=== PATIENT | female | born 1975 | race Caucasian/White ===

== ENCOUNTER 2016-08-03 09:51 | Emergency (ER) | payer OTHER ==
[2016-08-03 10:02] VITALS: TEMP 98; BMI 28.3
[2016-08-03] MEDS ORDERED: SODIUM CHLORIDE 1,000 ML IV ONE (10:40)
--- NOTE | 2016-08-03 10:40 | PDOC ---
History of Present Illness <Stephani Brown - Last Filed: 08/03/16 11:30> - General History Source: Patient Exam Limitations: No Limitations <Jose Youngblood - Last Filed: 08/03/16 17:00> - General Chief Complaint: Palpitations Stated Complaint: RAPID HEARTBEAT Time Seen by Provider: 08/03/16 10:17 - History of Present Illness Initial Comments: 08/03/16 11:30 The patient is a 41 year old female with a past medical hx of HTN who presents to the ED via EMS complaining of two episodes of palpitations since last night. The patient reports last night before she went to bed she had an episode of chest pressure and palpitations, which lasted for 1-2 minutes prior to resolving. She states this morning when she was driving to work she had a second episode of palpitations and chest pressure. The patient denies any associated chest pain and SOB. She reports last night she had a headache so she took an Excedrin prior to her episode of palpitations. She reports she drank coffee this morning and had breakfast before going to work. She reports daily caffeine intake. She states she has these episodes a few times a month. The patient denies any dizziness or lightheadedness. The patient states she is asymptomatic while in the ED. The patient has not had her thyroid levels checked in the past. LMP July 02, 2016. The patient denies nausea, vomiting, diarrhea, melena, hematochezia The patient denies cough, fever, chills Social: Denies tobacco use, drinks alcohol on occasion Surgical: Abdominal (leilani morgan) PCP: Dr. Harper (Stephani Brown) Past History <Stephani Brown - Last Filed: 08/03/16 11:30> - Past Medical History Anemia: No Asthma: No Cancer: No Cardiac Disorders: No CVA: No COPD: No CHF: No Dementia: No Diabetes: No GI Disorders: No Disorders: No HTN: No Hypercholesterolemia: Yes Liver Disease: No Seizures: No Thyroid Disease: No - Surgical History Abdominal Surgery: Yes (Leilani morgan, lipo) Appendectomy: No Cardiac Surgery: No Cholecystectomy: No Lung Surgery: No Neurologic Surgery: No - Immunization History Immunization Up to Date: Yes - Psycho/Social/Smoking Cessation Hx Anxiety: No Suicidal Ideation: No Smoking History: Never smoked Have you smoked in the past 12 months: No Information on smoking cessation initiated: No Hx Alcohol Use: No Drug/Substance Use Hx: No Substance Use Type: Alcohol Hx Substance Use Treatment: No <Jose Youngblood - Last Filed: 08/03/16 17:00> - Past Medical History Allergies/Adverse Reactions: Allergies Allergy/AdvReac Type Severity Reaction Status Date / Time adhesive AdvReac Verified 08/03/16 09:58 Home Medications: Ambulatory Orders Amlodipine Besylate 5 mg PO DAILY 08/03/16 Cardiac Specific PMH - Complaint Specific PMHX Pacemaker: No <Jose Youngblood - Last Filed: 08/03/16 17:00> Review of Systems - Review of Systems Able to Perform ROS?: Yes <Stephani Brown - Last Filed: 08/03/16 11:30> <Jose Youngblood - Last Filed: 08/03/16 17:00> - Review of Systems Comments:: 08/03/16 11:31 CONSTITUTIONAL: No reported: Fever, Chills, Diaphoresis, Generalized Weakness, Malaise, Loss of Appetite HEENT: No reported: Rhinorrhea, Nasal Congestion, Throat Pain, Throat Swelling, Difficulty Swallowing, Mouth Swelling, Ear Pain, Eye Pain, Visual Changes CARDIOVASCULAR: +Chest pressure, palpitations. No reported: Chest Pain, Syncope, Irregular Heart Rate, Lightheadedness, Peripheral Edema RESPIRATORY: No reported: Cough, Shortness of Breath, SOB with Exertion, Orthopnea, Wheezing , Stridor, Hemoptysis GASTROINTESTINAL: No reported: Abdominal pain, Abdominal Distension, Nausea, Vomiting, Diarrhea, Constipation, Melena, Hematochezia GENITOURINARY: No reported: Dysuria, Frequency, Urgency, Hesitancy, Flank Pain, Genital Pain MUSCULOSKELETAL: No reported: Myalgia, Arthralgia, Joint Swelling, Back pain, Neck Pain SKIN: No reported: Rash, Itching, Pallor HEMATOLOGIC/IMMUNOLOGIC: No reported: Easy Bleeding, Easy Bruising, Lymphadenopathy, Frequent infections ENDOCRINE: No reported: Unexplained Weight Gain, Unexplained Weight Loss, Heat Intolerance , Cold Intolerance NEUROLOGIC: No reported: Headache, Focal Weakness, Paresthesias, Vertigo, Lightheadedness, Unsteady Gait, Seizure, Mental Status Changes, Incontinence PSYCHIATRIC: No reported: Anxiety, Depression (Stephani Brown) *Physical Exam <Stephani Brown - Last Filed: 08/03/16 11:30> <Jose Youngblood - Last Filed: 08/03/16 17:00> - Vital Signs Last Vital Signs Temp Pulse Resp BP Pulse Ox 98.0 F 90 18 143/87 100 08/03/16 09:59 08/03/16 14:05 08/03/16 14:05 08/03/16 14:05 08/03/16 14:05 - Physical Exam Comments: 08/03/16 11:31 GENERAL: The patient is awake, alert, and fully oriented, Nontoxic - in no acute distress. HEAD: Normocephalic, atraumatic. EYES: extraocular movements intact, sclera anicteric, conjunctiva clear. ENT: Normal voice, Moist mucous membranes. NECK: Normal range of motion, No JVD LUNGS: Breath sounds equal, clear to auscultation bilaterally. No wheezes, no rhonchi, no rales. HEART: Regular rate and rhythm, normal S1 and S2 without murmur, rub or gallop. ABDOMEN: Soft, nontender, normoactive bowel sounds. No guarding, no rebound. No masses. No CVA tenderness EXTREMITIES: Normal range of motion, no edema. No clubbing or cyanosis. No cords , erythema, or tenderness. NEUROLOGICAL: No facial asymmetry, Normal speech, normal gait. PSYCH: Normal mood, normal affect. SKIN: Warm, Dry, normal turgor. (Stephani Brown) Heart Score/ECG Review <Stephani Brown - Last Filed: 08/03/16 11:30> - History History: Slightly suspicious - Electrocardiogram EKG: Normal - Age Age: </= 45 - Risk Factors Risk Factors Heart Score: Yes Hx Hypertension Based on the list above the patient has:: 1-2 risk factors - Troponin Troponin: </= normal limit - Score Heart Score - Total: 1 <Jose Youngblood - Last Filed: 08/03/16 17:00> - ECG Impressions Comment:: 08/03/16 10:51 Twelve-lead EKG was performed and reviewed by me. There is normal sinus rhythm with a normal rate. Rate of 90 The axis is normal. The intervals are normal. There is normal R wave progression There are no ST or T wave abnormalities. Impression: Normal twelve-lead EKG (Jose Youngblood) ED Treatment Course - LABORATORY CBC & Chemistry Diagram: 08/03/16 10:40 08/03/16 10:40 <Stephani Brown - Last Filed: 08/03/16 11:30> - LABORATORY CBC & Chemistry Diagram: 08/03/16 10:40 08/03/16 10:40 <Jose Youngblood - Last Filed: 08/03/16 17:00> - ADDITIONAL ORDERS Additional order review: Laboratory Results 08/03/16 08/03/16 08/03/16 15:24 10:40 10:40 Sodium 141 Potassium 3.8 Chloride 108 H Carbon Dioxide 27 Anion Gap 6 L BUN 14 D Creatinine 0.7 Creat Clearance w eGFR > 60 Random Glucose 93 Calcium 8.9 Magnesium 2.2 D Total Bilirubin 0.3 AST 14 L ALT 23 Alkaline Phosphatase 44 L Creatine Kinase 107 116 Troponin I < 0.02 < 0.02 Total Protein 7.1 Albumin 3.9 TSH 1.13 D Serum , Qual Negative Urine Color Colorless Urine Appearance Clear Urine pH 7.0 Ur Specific [place] 1.003 Urine Protein Negative Urine Glucose (UA) Negative Urine Ketones Negative Urine Blood Negative Urine Nitrite Negative Urine Bilirubin Negative Urine Urobilinogen Negative Ur Leukocyte Esterase Negative 08/03/16 10:40 RBC 4.97 MCV 83.5 MCHC 33.8 RDW 13.4 MPV 7.5 Neutrophils % 55.8 Lymphocytes % 33.7 D Monocytes % 6.9 Eosinophils % 3.2 Basophils % 0.4 - RADIOLOGY Radiology Studies Ordered: Category Date Time Status CHEST X-RAY PORTABLE* [RAD] Stat Radiology 08/03/16 10:27 Completed Radiograph Interpretation: 08/03/16 11:25 Chest X-Ray Findings. The trachea is normal in size is not deviated. The cardiomediastinal silhouette, thoracic aorta, and hilar regions are normal. The pulmonary vasculature pattern is normal. The lungs are well aerated, without evidence of active pulmonary disease, pleural effusion or pneumothorax. No bulky hilar adenopathy is noted. No lung mass is seen within the limitation of examination. The visualized osseous structure and soft tissues are normal. Impression: No evidence of active pulmonary disease. Reported By: Teodoro Vu MD 08/03/16 1122 (Stephani Brown) - Medications Given in the ED: ED Medications Discontinued Medications Generic Name Dose Route Start Last Admin Trade Name Tad PRN Reason Stop Dose Admin Al Hydroxide/Mg Hydroxide 30 ml 08/03/16 14:28 08/03/16 15:05 Mylanta Suspension - PO 08/03/16 14:29 30 ml ONCE ONE Administration Sodium Chloride 1,000 mls @ 1,000 mls/hr 08/03/16 10:40 08/03/16 11:00 Normal Saline - IV 08/03/16 11:39 1,000 mls/hr .Q1H ONE Administration Famotidine/Sodium Chloride 20 50 mls @ 100 mls/hr 08/03/16 14:28 08/03/16 15:05 mg/ Miscellaneous IVPB 08/03/16 14:57 100 mls/hr ONCE ONE Administration Medical Decision Making <KevinStephani - Last Filed: 08/03/16 11:30> <Jose Youngblood - Last Filed: 08/03/16 17:00> - Medical Decision Making 08/03/16 10:37 41y F hx of htn, presents with complaints of episodic palpitations, lasting for several minutes associated with mild chest pressure. on exam pt feeling improved currently asypmtmatic. vitals normal differential for the patient's symptoms include but are not limited to thyroid disease, anemia, metabolic derangements, orthostasis, caffeine use, anxiety. will check cbc to r/o anemia cmp to r/o electrolyte imbalance tsh to r./o thyroid disease ekg to r/o arrhythmia cxr to r/o acute pulmonary disease will reassess 08/03/16 16:59 pt feeling improved labs reviewed unremarkble trop neg x 2 will d/c with pmd fu return precautions were discussed I discussed the physical exam findings, ancillary test results and final diagnoses with the patient. I answered all of the patient's questions. The patient was satisfied with the care received and felt comfortable with the discharge plan and treatment plan. The patient will call their primary care physician within 24 hours to arrange follow-up and will return to the Emergency Department with any new, persistent or worsening symptoms. (Jose Youngblood) *DC/Admit/Observation/Transfer <Stephani Brown - Last Filed: 08/03/16 11:30> - Discharge Dispostion Admit: No <Jose Youngblood - Last Filed: 08/03/16 17:00> Diagnosis at time of Disposition: Palpitations - Discharge Dispostion Disposition: HOME Condition at time of disposition: Improved - Referrals Referrals: Leroy Boggs MD [Primary Care Provider] - - Patient Instructions Printed Discharge Instructions: DI for Palpitations Additional Instructions: Return to the emergency department immediately with ANY new, persistent or worsening symptoms. You MUST call and follow up with your doctor tomorrow for further evaluation of your symptoms. Results were discussed with you. Please make sure your doctor reviews the results of your emergency evaluation. If you had any xrays during your visit, it was read preliminarily by myself, a Radiologist will review it and if there are any additional findings we will call you. Print Language: SLOVENIAN - Attestations Scribe Attestion: 08/03/16 11:31 Documentation prepared by Stephani Brown, acting as medical assistant per diem for Jose Youngblood MD. (Stephani Brown)
[2016-08-03 11:10] LABS: BASOPHIL 0.4 % (0-2.0); EOSINOPHIL 3.2 % (0-4.5); MCH 28.2 pg (25.7-33.7); MCHC 33.8 g/dl (32.0-36.0); MEAN CELL VOLUME 83.5 fl (80-96); MEAN PLT VOLUME 7.5 fl (7.5-11.1); NEUTROPHILS 55.8 % (42.8-82.8); PLATELET COUNT 282 K/MM3 (134-434); RDW 13.4 % (11.6-15.6); WHITE BLOOD COUNT 5.8 K/mm3 (4.0-10.0)
[2016-08-03 11:36] LABS: ALBUMIN 3.9 g/dl (3.4-5.0); ANION GAP 6 (8-16); BILIRUBIN,TOTAL 0.3 mg/dL (0.2-1.0); CALCIUM 8.9 mg/dL (8.5-10.1); CO2 27 mmol/L (21-32); CREATININE 0.7 mg/dL (0.55-1.02); GLUCOSE,RANDOM 93 mg/dL (74-106); MAGNESIUM 2.2 mg/dL (1.8-2.4); SGOT/AST 14 U/L (15-37); SGPT/ALT 23 U/L (12-78); TOT PROT 7.1 g/dl (6.4-8.2)
[2016-08-03 11:45] LABS: ALK PHOS 44 U/L (45-117); THYROID STIMULATING HORMONE 1.13 uIU/ml (0.358-3.74); TROPONIN I < 0.02 ng/ml (0.00-0.05)
[2016-08-03] MEDS ORDERED: FAMOTIDINE 20 MG/50 ML IVPB 20 MG in PREMIX 50 IVPB ONE (14:28)
[2016-08-03] MEDS ORDERED: MAG HYDROX/AL HYDROX/SIMETH 355 ML ORAL.SUSP PO ONE (14:28)
[2016-08-03] MEDS ORDERED: MAG HYDROX/AL HYDROX/SIMETH 30 ML UNIT-DOSE CUP ONE (15:00)
[2016-08-03] MEDS ORDERED: FAMOTIDINE 20 MG/50 ML IVPB 50 ML IVPB ONE (15:01)
[2016-08-03 15:15] LABS: URINE APPEARANCE CLEAR; URINE BILIRUBIN NEGATIVE (NEGATIVE); URINE BLOOD NEGATIVE (NEGATIVE); URINE COLOR COLORLESS; URINE GLUCOSE (UA) NEGATIVE (NEGATIVE); URINE KETONE NEGATIVE (NEGATIVE); URINE LEUK ESTERASE NEGATIVE (NEGATIVE); URINE NITRITE NEGATIVE (NEGATIVE); URINE PROTEIN NEGATIVE (NEGATIVE); URINE UROBILINOGEN NEGATIVE E.U./dl (0.2-1.0)
[2016-08-03 16:19] LABS: TROPONIN I < 0.02 ng/ml (0.00-0.05)
[2016-08-03 17:12] VITALS: BP 127/88; PULSE 84
--- NOTE | 2016-08-03 23:16 | EKG ---
Test Reason : Blood Pressure : / mmHG Vent. Rate : 090 BPM Atrial Rate : 090 BPM P-R Int : 134 ms QRS Dur : 084 ms QT Int : 368 ms P-R-T Axes : 038 068 052 degrees QTc Int : 450 ms NORMAL SINUS RHYTHM WHEN COMPARED WITH ECG OF 24-FEB-2016 14:08, NO SIGNIFICANT CHANGE WAS FOUND Confirmed by JOYCE ALVAREZ MD ([id number]) on 08/03/2016 11:15:29 PM Referred By: Confirmed By:JOYCE ALVAREZ MD
== END 2016-08-03 17:12 | disposition home or self-care (01) ==
LOC: JER 09:51
PROC: 3E033GC Introduction of Other Therapeutic Substance into Peripheral Vein, Percutaneous Approach (ICD-10-PCS; principal; 2016-08-03)
PROC: 3E0337Z Introduction of Electrolytic and Water Balance Substance into Peripheral Vein, Percutaneous Approach (ICD-10-PCS; 2016-08-03)
DX: R00.2 Palpitations (principal); I10 Essential (primary) hypertension
CPT/HCPCS: 36415; 71010-TC; 80053; 81003; 82550; 83735; 84443; 84484; 84703; 85025; 93005; 93010; 96361; 96365; 99285-25

== ENCOUNTER 2017-05-04 09:33 | Emergency (ER) | payer OTHER ==
[2017-05-04 09:37] VITALS: BMI 28.3
[2017-05-04] MEDS ORDERED: ASPIRIN 81 MG CHEWABLE TABLETS PO ONE (11:21)
[2017-05-04] MEDS ORDERED: ASPIRIN 81 MG CHEWABLE TABLETS ONE (11:24)
--- NOTE | 2017-05-04 11:30 | PDOC ---
History of Present Illness - General History Source: Patient Exam Limitations: No Limitations - History of Present Illness Initial Comments: 05/04/17 12:16 The patient is a 42 year old female, with a significant past medical history of HTN, HLD who presents to the emergency department with sudden onset chest pressure and epigastric discomfort today. Patient reports chest pressure, nonradiating, burning sensation, 8/10 in severity that lasted for 1 minute. 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 Patient reports associated nausea however denies vomiting, abdominal, diarrhea, constipation. As per patient, last stress test was normal. She also reports taking her BP medication this morning. Patient also reports intermittent leg edema however denies calf pain. She denies chest pain, headache or dizziness. She denies fever, chills, abdominal pain, nausea, vomit, diarrhea or constipation. She denies dysuria, frequency, urgency or hematuria. Patient denies sick contacts or recent travel. <Tori Mansfield - Last Filed: 05/04/17 12:16> <Ingrid Ortiz - Last Filed: 05/04/17 16:03> - General Chief Complaint: Pain Stated Complaint: CHEST DISCOMFORT, ABD PAIN Time Seen by Provider: 05/04/17 10:42 Past History <Tori Mansfield - Last Filed: 05/04/17 12:16> - Past Medical History Anemia: No Asthma: No Cancer: No Cardiac Disorders: No CVA: No COPD: No CHF: No Dementia: No Diabetes: No GI Disorders: No Disorders: No HTN: Yes Hypercholesterolemia: Yes Liver Disease: No Seizures: No Thyroid Disease: No - Surgical History Abdominal Surgery: Yes (Tummy tuck, lipo) Appendectomy: No Cardiac Surgery: No Cholecystectomy: No Lung Surgery: No Neurologic Surgery: No - Immunization History Immunization Up to Date: Yes - Suicide/Smoking/Psychosocial Hx Smoking History: Never smoked Have you smoked in the past 12 months: No Hx Alcohol Use: Yes (SOCIAL) Drug/Substance Use Hx: No Substance Use Type: Alcohol Hx Substance Use Treatment: No <Ingrid Ortiz - Last Filed: 05/04/17 16:03> - Past Medical History Allergies/Adverse Reactions: Allergies Allergy/AdvReac Type Severity Reaction Status Date / Time adhesive AdvReac Verified 05/04/17 09:37 Home Medications: Ambulatory Orders Amlodipine Besylate 5 mg PO DAILY 08/03/16 Review of Systems - Review of Systems Able to Perform ROS?: Yes Comments:: 05/04/17 12:16 GENERAL/CONSTITUTIONAL: No fever or chills. No weakness. HEAD, EYES, EARS, NOSE AND THROAT: No change in vision. No ear pain or discharge. No sore throat. GASTROINTESTINAL: + nausea, vomiting, epigastric pain. No diarrhea or constipation. GENITOURINARY: No dysuria, frequency, or change in urination. CARDIOVASCULAR: No chest pain or shortness of breath. RESPIRATORY: No cough, wheezing, or hemoptysis. MUSCULOSKELETAL: No joint or muscle swelling or pain. No neck or back pain. SKIN: No rash NEUROLOGIC: No headache, vertigo, loss of consciousness, or change in strength/ sensation. ENDOCRINE: No increased thirst. No abnormal weight change. HEMATOLOGIC/LYMPHATIC: No anemia, easy bleeding, or history of blood clots. ALLERGIC/IMMUNOLOGIC: No hives or skin allergy. <Tori Mansfield - Last Filed: 05/04/17 12:16> *Physical Exam - Vital Signs Last Vital Signs Temp Pulse Resp BP Pulse Ox 98.4 F 73 17 123/90 99 05/04/17 11:51 05/04/17 11:51 05/04/17 11:51 05/04/17 11:51 05/04/17 11:51 - Physical Exam Comments: 05/04/17 12:16 GENERAL: Awake, alert, and fully oriented, in no acute distress HEAD: No signs of trauma EYES: PERRLA, EOMI, sclera anicteric, conjunctiva clear ENT: Auricles normal inspection, nares patent, Moist mucosa NECK: Normal ROM, supple, no lymphadenopathy, JVD, or masses LUNGS: Breath sounds equal, clear to auscultation bilaterally. No wheezes, and no crackles HEART: Regular rate and rhythm, normal S1 and S2, no murmurs, rubs or gallops ABDOMEN: Soft, nontender, normoactive bowel sounds. No guarding, no rebound. No masses EXTREMITIES: Normal range of motion, no edema. No clubbing or cyanosis. No cords, erythema, or tenderness NEUROLOGICAL: Normal speech SKIN: Warm, Dry, normal turgor, no rashes or lesions noted. <Tori Mansfield - Last Filed: 05/04/17 12:16> - Vital Signs Last Vital Signs Temp Pulse Resp BP Pulse Ox 98.7 F 91 H 20 156/107 100 05/04/17 09:34 05/04/17 09:34 05/04/17 09:34 05/04/17 09:34 05/04/17 09:34 <Ingrid Ortiz - Last Filed: 05/04/17 16:03> Heart Score/ECG Review #1 ECG reviewed & interpreted by me at: 09:50 General ECG Interpretation: Sinus Rhythm, Normal Rate (86), Normal Intervals, No acute ischemic changes #2 General ECG Interpretation: Sinus Rhythm, Normal Rate (79), Normal Intervals, No acute ischemic changes ([place]) <Ingrid Ortiz - Last Filed: 05/04/17 16:03> ED Treatment Course - LABORATORY CBC & Chemistry Diagram: 05/04/17 11:22 05/04/17 11:22 - ADDITIONAL ORDERS Additional order review: Laboratory Results 05/04/17 11:22 Serum , Qual Negative 05/04/17 11:22 RBC 5.12 MCV 83.8 MCHC 33.3 RDW 13.0 MPV 7.4 L Neutrophils % 55.1 Lymphocytes % 36.3 Monocytes % 5.2 Eosinophils % 2.7 Basophils % 0.7 - Medications Given in the ED: ED Medications Discontinued Medications Generic Name Dose Route Start Last Admin Trade Name Freq PRN Reason Stop Dose Admin Aspirin 162 mg 05/04/17 11:21 05/04/17 11:26 Asa - PO 05/04/17 11:22 162 mg ONCE ONE Administration <Tori Mansfield - Last Filed: 05/04/17 12:16> - LABORATORY CBC & Chemistry Diagram: 05/04/17 11:22 05/04/17 11:22 - RADIOLOGY Radiology Studies Ordered: Category Date Time Status CHEST PA & LAT [RAD] Stat Radiology 05/04/17 11:22 Ordered <Ingrid Ortiz - Last Filed: 05/04/17 16:03> Medical Decision Making - Medical Decision Making 05/04/17 11:22 42 yo F h/o htn here wtih /co epigsatric pain, and chest pain. started this am lasted only 2 min. did have nausea. 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 does have intermittent leg edema. no calf pain. no family of CAD, does have family h/o htn. pt has normal stress test one year ago On exam, patient is awake alert has a normal cardiac and lung exam abdomen is soft and nontender, extremities are warm and well perfused without edema. Differential, hematocrit is acute coronary syndrome, GERD, PE, infection,. Plan , chest x-ray EKG aspirin CBC CMP troponin and chest x-ray with a D dimer. 05/04/17 16:01 4 hr troponin is negative with repeat ekg normal. will give referral to see cardiology. low risk for acs. ekg unchanged. <Ingrid Ortiz - Last Filed: 05/04/17 16:03> *DC/Admit/Observation/Transfer - Attestations Scribe Attestion: 05/04/17 12:16 Documentation prepared by Tori Mansfield, acting as medical clerical assistant for Ingrid Ortiz MD <Tori Mansfield - Last Filed: 05/04/17 12:16> - Discharge Dispostion Admit: No <Ingrid Ortiz - Last Filed: 05/04/17 16:03> Diagnosis at time of Disposition: Chest pain - Discharge Dispostion Disposition: HOME Condition at time of disposition: Improved - Referrals Referrals: Markell Coleman MD [Primary Care Provider] - Monroe Gonzales MD [Staff Physician] - - Patient Instructions Printed Discharge Instructions: DI for Chest Pain Additional Instructions: you should follow up with a hot box operator. if you do not have one you can follow up with DR. Gonzales. call to schedule. you should take baby aspirin daily until follow up with your hot box operator. return for any recurrent symtpoms or any concerns. - Post Discharge Activity Forms/Work/School Notes: Back to Work
[2017-05-04 11:48] LABS: BASOPHIL 0.7 % (0-2.0); EOSINOPHIL 2.7 % (0-4.5); MCH 27.9 pg (25.7-33.7); MCHC 33.3 g/dl (32.0-36.0); MEAN CELL VOLUME 83.8 fl (80-96); MEAN PLT VOLUME 7.4 fl (7.5-11.1); NEUTROPHILS 55.1 % (42.8-82.8); PLATELET COUNT 343 K/MM3 (134-434)
[2017-05-04 11:59] LABS: ALBUMIN 3.8 g/dl (3.4-5.0); ANION GAP 6 (8-16); CALCIUM 8.1 mg/dL (8.5-10.1); CO2 27 mmol/L (21-32); CREATININE 0.7 mg/dL (0.55-1.02); GLUCOSE,RANDOM 102 mg/dL (74-106); SGOT/AST 14 U/L (15-37); SGPT/ALT 24 U/L (12-78)
[2017-05-04 12:03] LABS: ALK PHOS 50 U/L (45-117); BILIRUBIN,TOTAL 0.7 mg/dL (0.2-1.0); CPK 87 IU/L (26-192); TOT PROT 7.2 g/dl (6.4-8.2); TROPONIN I < 0.02 ng/ml (0.00-0.05)
[2017-05-04 12:13] LABS: INR 0.97 (0.82-1.09)
[2017-05-04 12:15] LABS: ACTIVATED PTT 28.3 SECONDS (26.9-34.4)
[2017-05-04 13:41] VITALS: TEMP 98.2
[2017-05-04] MEDS ORDERED: FAMOTIDINE 20 MG/50 ML IVPB 50 ML IVPB ONE ×2 (14:55→15:10)
[2017-05-04] MEDS ORDERED: ACETAMINOPHEN 325 MG TABLET (FP) PO ONE (14:55)
[2017-05-04] MEDS ORDERED: MAG HYDROX/AL HYDROX/SIMETH 30 ML UNIT-DOSE CUP PO ONE (14:55)
[2017-05-04] MEDS ORDERED: ACETAMINOPHEN 325 MG TABLET (FP) ONE ×2 (14:58→15:09)
[2017-05-04] MEDS ORDERED: MAG HYDROX/AL HYDROX/SIMETH 30 ML UNIT-DOSE CUP ONE (15:09)
[2017-05-04 15:25] LABS: CPK 70 IU/L (26-192); TROPONIN I < 0.02 ng/ml (0.00-0.05)
[2017-05-04 16:28] VITALS: BP 126/86; PULSE 90
--- NOTE | 2017-05-05 17:05 | EKG ---
Test Reason : Blood Pressure : / mmHG Vent. Rate : 079 BPM Atrial Rate : 079 BPM P-R Int : 144 ms QRS Dur : 086 ms QT Int : 378 ms P-R-T Axes : 056 068 060 degrees QTc Int : 433 ms NORMAL SINUS RHYTHM NORMAL ECG WHEN COMPARED WITH ECG OF 04-MAY-2017 09:46, NO SIGNIFICANT CHANGE WAS FOUND Confirmed by ARACELIS COREY MD ([id number]) on 05/05/2017 5:05:13 PM Referred By: Confirmed By:ARACELIS COREY MD
--- NOTE | 2017-05-05 17:08 | EKG ---
Test Reason : Blood Pressure : / mmHG Vent. Rate : 086 BPM Atrial Rate : 086 BPM P-R Int : 136 ms QRS Dur : 088 ms QT Int : 370 ms P-R-T Axes : 063 067 050 degrees QTc Int : 442 ms NORMAL SINUS RHYTHM NORMAL ECG WHEN COMPARED WITH ECG OF 03-AUG-2016 10:14, NO SIGNIFICANT CHANGE WAS FOUND Confirmed by ARACELIS COREY MD ([id number]) on 05/05/2017 5:07:59 PM Referred By: Confirmed By:ARACELIS COREY MD
== END 2017-05-04 16:28 | disposition home or self-care (01) ==
LOC: JER 09:33
PROC: 3E033GC Introduction of Other Therapeutic Substance into Peripheral Vein, Percutaneous Approach (ICD-10-PCS; principal; 2017-05-04)
DX: I10 Essential (primary) hypertension (principal); E78.5 Hyperlipidemia, unspecified; R07.89 Other chest pain
CPT/HCPCS: 36415; 71020-TC; 80053; 82550; 84484; 84703; 85025; 85379; 85610; 85730; 93005; 93010; 99284-25

== ENCOUNTER 2017-05-29 23:28 | Emergency (ER) | payer OTHER ==
[2017-05-29 23:46] LABS: URINE APPEARANCE CLEAR; URINE BILIRUBIN NEGATIVE (NEGATIVE); URINE BLOOD 3+ (NEGATIVE); URINE COLOR RED; URINE GLUCOSE (UA) NEGATIVE (NEGATIVE); URINE KETONE NEGATIVE (NEGATIVE); URINE NITRITE NEGATIVE (NEGATIVE); URINE UROBILINOGEN NEGATIVE mg/dL (0.2-1.0)
[2017-05-29 23:48] LABS: URINE PROTEIN 1+ (NEGATIVE)
[2017-05-29 23:49] LABS: URINE RBC 76 /hpf (0-3); URINE WBC 7 /hpf (3-5)
[2017-05-29 23:54] VITALS: TEMP 99.2; BMI 28.3
[2017-05-30 00:10] LABS: BASOPHIL 0.6 % (0-2.0); EOSINOPHIL 3.2 % (0-4.5); MCH 28.3 pg (25.7-33.7); MCHC 33.8 g/dl (32.0-36.0); MEAN CELL VOLUME 83.7 fl (80-96); MEAN PLT VOLUME 7.5 fl (7.5-11.1); NEUTROPHILS 47.1 % (42.8-82.8); PLATELET COUNT 310 K/MM3 (134-434); RDW 13.4 % (11.6-15.6)
--- NOTE | 2017-05-30 00:12 | PDOC ---
History of Present Illness <Susan Clark Darline - Last Filed: 05/30/17 00:59> - General History Source: Patient Exam Limitations: No Limitations <Russel Ogden - Last Filed: 05/30/17 01:18> - General Chief Complaint: Chest Pain Stated Complaint: CHEST PAIN Time Seen by Provider: 05/29/17 23:53 - History of Present Illness Initial Comments: 05/30/17 01:14 The patient is a 42 year old female brought via EMS, with a significant past medical history of HTN and HLD, who presents to the emergency department with chest pain and headache onset tonight. She describes her headache as ranging from mild to moderate, without radiation or modifying factors. She reports that she took Excedrin immediately following the onset of the headache. She then started to have chest pain, ranging from mild to moderate, without radiation or modifying factors. She describes her chest pain as a pressure like sensation. She states that she checked her blood pressure to be elevated at 196/116. On route to the hospital, EMS administered Nitro and Aspirin. The patient was in the ED earlier this month with the same symptoms and had a negative cardiac workout before being discharged. The patient denies shortness of breath, and dizziness. Denies fever, chills, nausea, vomit, diarrhea and constipation. Denies dysuria, frequency, urgency and hematuria. Allergies: None Past surgical history: Liposuction, tummy tuck Social history: Alcohol (occasional). No tobacco or drug use reported (Russel Ogden) Past History - Past Medical History Anemia: No Asthma: No Cancer: No Cardiac Disorders: No CVA: No COPD: No CHF: No Dementia: No Diabetes: No GI Disorders: No Disorders: No HTN: Yes Hypercholesterolemia: Yes Liver Disease: No Seizures: No Thyroid Disease: No - Surgical History Abdominal Surgery: Yes (Tummy tuck, lipo) Appendectomy: No Cardiac Surgery: No Cholecystectomy: No Lung Surgery: No Neurologic Surgery: No - Immunization History Immunization Up to Date: Yes - Suicide/Smoking/Psychosocial Hx Smoking History: Never smoked Have you smoked in the past 12 months: No Hx Alcohol Use: Yes (SOCIAL) Drug/Substance Use Hx: No Substance Use Type: Alcohol Hx Substance Use Treatment: No <EduardoSusan Darline - Last Filed: 05/30/17 00:59> <Russel Ogden - Last Filed: 05/30/17 01:18> - Past Medical History Allergies/Adverse Reactions: Allergies Allergy/AdvReac Type Severity Reaction Status Date / Time adhesive AdvReac Verified 05/29/17 23:40 Home Medications: Ambulatory Orders Nebivolol [Bystolic -] 5 mg PO DAILY 05/29/17 Cardiac Specific PMH - Complaint Specific PMHX Pacemaker: No <Susan Clark - Last Filed: 05/30/17 00:59> Review of Systems <Susan Clark - Last Filed: 05/30/17 00:59> - Review of Systems Able to Perform ROS?: Yes <Russel Ogden - Last Filed: 05/30/17 01:18> - Review of Systems Comments:: 05/30/17 01:13 GENERAL/CONSTITUTIONAL: No fever or chills. No weakness. HEAD, EYES, EARS, NOSE AND THROAT: No change in vision. No ear pain or discharge. No sore throat.- CARDIOVASCULAR: (+) Chest pain. No shortness of breath RESPIRATORY: No cough, wheezing, or hemoptysis. GASTROINTESTINAL: No nausea, vomiting, diarrhea or constipation. GENITOURINARY: No dysuria, frequency, or change in urination. MUSCULOSKELETAL: No joint or muscle swelling or pain. No neck or back pain. SKIN: No rash NEUROLOGIC: (+) Headache. No vertigo, loss of consciousness, or change in strength/sensation. ENDOCRINE: No increased thirst. No abnormal weight change HEMATOLOGIC/LYMPHATIC: No anemia, easy bleeding, or history of blood clots. ALLERGIC/IMMUNOLOGIC: No hives or skin allergy. (Russel Ogden) *Physical Exam <Susan Clark Darline - Last Filed: 05/30/17 00:59> <Russel Ogden - Last Filed: 05/30/17 01:18> - Vital Signs Last Vital Signs Temp Pulse Resp BP Pulse Ox 99.2 F 77 16 135/87 99 05/29/17 23:42 05/29/17 23:42 05/29/17 23:42 05/29/17 23:42 05/29/17 23:42 - Physical Exam Comments: 05/30/17 01:13 GENERAL: Awake, alert, and fully oriented, in no acute distress HEAD: No signs of trauma, normocephalic, atraumatic EYES: PERRLA, EOMI, sclera anicteric, conjunctiva clear ENT: Auricles normal inspection, hearing grossly normal, nares patent, oropharynx clear without exudates. Moist mucosa NECK: Normal ROM, supple, no lymphadenopathy, JVD, or masses LUNGS: No distress, speaks full sentences, clear to auscultation bilaterally HEART: Regular rate and rhythm, normal S1 and S2, no murmurs, rubs or gallops, peripheral pulses normal and equal bilaterally. ABDOMEN: Soft, nontender, normoactive bowel sounds. No guarding, no rebound. No masses EXTREMITIES : Normal inspection, Normal range of motion, no edema. No clubbing or cyanosis. NEUROLOGICAL: Cranial nerves II through XII grossly intact. Normal speech, normal gait, no focal sensorimotor deficits SKIN: Warm, Dry, normal turgor, no rashes or lesions noted. (Russel Ogden) ED Treatment Course - LABORATORY CBC & Chemistry Diagram: 05/30/17 00:01 05/30/17 00:01 <Susan Clark - Last Filed: 05/30/17 00:59> - LABORATORY CBC & Chemistry Diagram: 05/30/17 00:01 05/30/17 00:01 <Russel Ogden - Last Filed: 05/30/17 01:18> - ADDITIONAL ORDERS Additional order review: Laboratory Results 05/30/17 05/30/17 05/29/17 00:01 00:01 23:37 PT with INR 10.70 INR 0.95 Sodium 140 Potassium 3.8 Chloride 104 Carbon Dioxide 24 Anion Gap 12 BUN 15 Creatinine 0.7 Creat Clearance w eGFR > 60 Random Glucose 114 H Calcium 8.8 Total Bilirubin 0.2 D AST 16 ALT 21 Alkaline Phosphatase 51 Creatine Kinase 144 Troponin I < 0.02 Total Protein 7.1 Albumin 3.7 Urine Color Red Urine Appearance Clear Urine pH 8.0 Ur Specific [place] 1.002 Urine Protein 1+ H Urine Glucose (UA) Negative Urine Ketones Negative Urine Blood 3+ H Urine Nitrite Negative Urine Bilirubin Negative Urine Urobilinogen Negative Urine WBC (Auto) 7 Urine RBC (Auto) 76 Ur Epithelial Cells Rare Urine HCG, Qual Negative 05/30/17 00:01 RBC 4.84 MCV 83.7 MCHC 33.8 RDW 13.4 MPV 7.5 Neutrophils % 47.1 Lymphocytes % 40.4 H Monocytes % 8.7 Eosinophils % 3.2 Basophils % 0.6 Medical Decision Making <Susan Clark - Last Filed: 05/30/17 00:59> <Russel Ogden - Last Filed: 05/30/17 01:18> - Medical Decision Making 05/30/17 00:56 42-year-old female who had some preauricular facial pain and then also felt some discomfort in her epigastric area. So she took her blood pressure was elevated at home. She called 911. Patient was here May 04 in had 2 sets of cardiac enzymes and ruled out for ND. She is referred to engrosser, Dr. Sacha sanchez but has not been able to see him yet. Past medical history hypertension. 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 There were no significant changes. Plan patient follow-up. The engrosser for echo (Susan Clark) *DC/Admit/Observation/Transfer <Susan Clark - Last Filed: 05/30/17 00:59> <Russel Ogden - Last Filed: 05/30/17 01:18> Diagnosis at time of Disposition: Chest pain Qualifiers: Chest pain type: unspecified Qualified Code(s): R07.9 - Chest pain, unspecified - Discharge Dispostion Disposition: HOME - Referrals Referrals: Markell Coleman MD [Primary Care Provider] - Monroe Gonzales MD [Staff Physician] - - Patient Instructions Printed Discharge Instructions: DI for Atypical Chest Pain Additional Instructions: please follow up with the engrosser , Dr Gonzales Print Language: ARABIC - Post Discharge Activity - Attestations Scribe Attestion: 05/30/17 01:13 Documentation prepared by Russel Ogden, acting as medical care evaluation specialist for Susan Clark MD (Russel Ogden)
[2017-05-30 00:26] LABS: INR 0.95 (0.82-1.09); PROTHROMBIN TIME (PATIENT) 10.7 SEC (9.98-11.88)
[2017-05-30 00:40] LABS: ALBUMIN 3.7 g/dl (3.4-5.0); ANION GAP 12 (8-16); BILIRUBIN,TOTAL 0.2 mg/dL (0.2-1.0); CALCIUM 8.8 mg/dL (8.5-10.1); CO2 24 mmol/L (21-32); CREATININE 0.7 mg/dL (0.55-1.02); GLUCOSE,RANDOM 114 mg/dL (74-106); SGOT/AST 16 U/L (15-37); SGPT/ALT 21 U/L (12-78); TOT PROT 7.1 g/dl (6.4-8.2)
[2017-05-30 00:42] LABS: ALK PHOS 51 U/L (45-117); CPK 144 IU/L (26-192); TROPONIN I < 0.02 ng/ml (0.00-0.05)
[2017-05-30 01:38] VITALS: BP 129/88; PULSE 75
[2017-05-30 13:09] LABS: URINE LEUK ESTERASE TRACE (NEGATIVE)
--- NOTE | 2017-05-30 14:00 | EKG ---
Test Reason : Blood Pressure : / mmHG Vent. Rate : 085 BPM Atrial Rate : 085 BPM P-R Int : 118 ms QRS Dur : 086 ms QT Int : 380 ms P-R-T Axes : 048 063 049 degrees QTc Int : 452 ms NORMAL SINUS RHYTHM NORMAL ECG WHEN COMPARED WITH ECG OF 04-MAY-2017 15:11, NO SIGNIFICANT CHANGE WAS FOUND Confirmed by JOYCE ALVAREZ MD ([id number]) on 05/30/2017 1:59:54 PM Referred By: Confirmed By:JOYCE ALVAREZ MD
== END 2017-05-30 01:38 | disposition home or self-care (01) ==
LOC: JER 23:28
DX: R07.89 Other chest pain (principal); I10 Essential (primary) hypertension; E78.00 Pure hypercholesterolemia, unspecified
CPT/HCPCS: 36415; 80053; 81003; 81015; 82550; 84484; 84703; 85025; 85610; 93005; 93010; 99283-25

== ENCOUNTER 2017-08-03 14:25 | Emergency (ER) | payer OTHER ==
--- NOTE | 2017-08-03 14:44 | PDOC ---
Rapid Medical Evaluation Time Seen by Provider: 08/03/17 14:40 Medical Evaluation: Allergies Allergy/AdvReac Type Severity Reaction Status Date / Time adhesive AdvReac Verified 05/29/17 23:40 08/03/17 14:41 I have performed a brief in-person evaluation of this patient. The patient presents with a chief complaint of: CP w/ weakness today while driving, better now. Has had similar symptoms in past w/ no findings on work up in ED, had neg stress test last year as per pt Pertinent physical exam findings:none I have ordered the following:ekg The patient will proceed to the ED for further evaluation. 08/03/17 14:45 Discharge Disposition - Referrals Referrals: Markell Coleman MD [Primary Care Provider] - - Patient Instructions - Post Discharge Activity
[2017-08-03 14:47] VITALS: BMI 29.2
--- NOTE | 2017-08-03 15:20 | EKG ---
Test Reason : Blood Pressure : / mmHG Vent. Rate : 076 BPM Atrial Rate : 076 BPM P-R Int : 120 ms QRS Dur : 090 ms QT Int : 388 ms P-R-T Axes : 055 066 050 degrees QTc Int : 436 ms NORMAL SINUS RHYTHM NORMAL ECG WHEN COMPARED WITH ECG OF 29-MAY-2017 23:45, NO SIGNIFICANT CHANGE WAS FOUND Confirmed by MARY SEARS MD ([id number]) on 08/03/2017 3:20:22 PM Referred By: Confirmed By:MARY SEARS MD
--- NOTE | 2017-08-03 15:26 | PDOC ---
Attending Attestation - Resident Resident Name: Adrian Ansari - ED Attending Attestation I have performed the following: I have examined & evaluated the patient, The case was reviewed & discussed with the resident, I agree w/resident's findings & plan, Exceptions are as noted <Shadia Bonilla - Last Filed: 08/03/17 15:26> - HPI HPI: 08/03/17 17:44 The patient is a 42 year old female with a significant PMH of HTN and hyperlipidemia who presents to the emergency department with epigastric pain and constipation beginning approximately this morning. She also notes feeling intermittently dizzy for the past movement which is worse with movement. She denies fevers, chills, nausea, vomiting, and diarrhea. Allergies: Adhesive <Darryl Velasquez - Last Filed: 08/03/17 17:44>
--- NOTE | 2017-08-03 15:53 | PDOC ---
History of Present Illness - General Chief Complaint: Chest Pain Stated Complaint: CHEST PAIN,HIGH BP,WEAKNESS Time Seen by Provider: 08/03/17 14:40 - History of Present Illness Initial Comments: 08/03/17 15:49 42 yo F with h/o who presents with epiastric pain beginning this AM. Patient reports nonradiating epigatsirc and retrosternal pain/globus sensation described as "something stuck in chest," worse with supine positioning following pill intake. Denies epigastria or sternal burning. No asx. back, jaw, neck, or limb radiation. Endorses constipation, with intermittent blood spotting on toilet paper. + Vertiginous symptoms for past month room spinning worse with movement intermittently. Denies F/C, N/V, SOB, pleuritic chest pain, weakness. Recent UTI 2 days ago treated with antibiotics. Denies GI pathology, or h/o abdominal procedures. Past History - Past Medical History Allergies/Adverse Reactions: Allergies Allergy/AdvReac Type Severity Reaction Status Date / Time adhesive AdvReac Verified 08/03/17 14:42 Home Medications: Ambulatory Orders Amlodipine Besylate 5 mg PO DAILY 08/03/17 Losartan Potassium 50 mg PO DAILY 08/03/17 Anemia: No Asthma: No Cancer: No Cardiac Disorders: No CVA: No COPD: No CHF: No Dementia: No Diabetes: No GI Disorders: No Disorders: No HTN: Yes Hypercholesterolemia: Yes Liver Disease: No Seizures: No Thyroid Disease: No - Surgical History Abdominal Surgery: Yes (Tummy tuck, lipo) Appendectomy: No Cardiac Surgery: No Cholecystectomy: No Lung Surgery: No Neurologic Surgery: No - Immunization History Immunization Up to Date: Yes - Suicide/Smoking/Psychosocial Hx Smoking History: Never smoked Have you smoked in the past 12 months: No Information on smoking cessation initiated: No Hx Alcohol Use: No Drug/Substance Use Hx: No Substance Use Type: Alcohol Hx Substance Use Treatment: No Review of Systems - Review of Systems Comments:: 08/03/17 16:33 GENERAL/CONSTITUTIONAL: No fever or chills. No weakness. HEAD, EYES, EARS, NOSE AND THROAT: No change in vision. No ear pain or discharge. No sore throat.- CARDIOVASCULAR:+ Chest Pain. No shortness of breath RESPIRATORY: No cough, wheezing, or hemoptysis. GASTROINTESTINAL: + Abdominal pain. No nausea, vomiting, diarrhea or constipation. GENITOURINARY: No dysuria, frequency, or change in urination. MUSCULOSKELETAL: No joint or muscle swelling or pain. No neck or back pain. SKIN: No rash NEUROLOGIC: No headache, vertigo, loss of consciousness, or change in strength/ sensation. ENDOCRINE: No increased thirst. No abnormal weight change HEMATOLOGIC/LYMPHATIC: No anemia, easy bleeding, or history of blood clots. ALLERGIC/IMMUNOLOGIC: No hives or skin allergy. *Physical Exam - Vital Signs Last Vital Signs Temp Pulse Resp BP Pulse Ox 98.9 F 84 16 146/93 100 08/03/17 14:42 08/03/17 14:42 08/03/17 14:42 08/03/17 14:42 08/03/17 15:10 - Physical Exam Comments: 08/03/17 16:32 GENERAL: Awake, alert, and fully oriented, in no acute distress HEAD: No signs of trauma, normocephalic, atraumatic EYES: PERRLA, EOMI, sclera anicteric, conjunctiva clear ENT: Hearing grossly normal, nares patent, oropharynx clear without exudates. Moist mucosa NECK: Normal ROM, no JVD, or masses LUNGS: No distress, speaks full sentences, clear to auscultation bilaterally HEART: Regular rate and rhythm, normal S1 and S2, no murmurs, rubs or gallops, peripheral pulses normal and equal bilaterally. ABDOMEN: Mild epigastirc ttp. Soft, nontender, normoactive bowel sounds. No guarding, no rebound. No masses. Neg rigidity. Neg CVA ttp. Neg suprapubic ttp. EXTREMITIES : Normal inspection, Normal range of motion, no edema. No clubbing or cyanosis. SKIN: Warm, Dry, normal turgor, no rashes or lesions noted. ED Treatment Course - LABORATORY CBC & Chemistry Diagram: 08/03/17 16:32 08/03/17 16:32 Medical Decision Making - Medical Decision Making 08/03/17 17:08 42 yo F with h/o who presents with nonradiating epigastric/ retrosternal pain/ globus sensation described as "something stuck in chest and throat," worse with supine positioning following pill intake. Denies epigastria or sternal burning. Endorses constipation, with intermittent blood spotting on toilet paper. Denies F/C, N/V, SOB, pleuritic chest pain, weakness. Recent UTI 2 days ago treated with antibiotics. Denies GI pathology, or h/o abdominal procedures. Physical exam notable with mild epigastric ttp. Hemodynamically stable. S/s likely 2/2 pill esophagits. ACS/AK r/o in setting of atypical chest pain and risk factors. ED Course: CBC, CMP, Lipase, Cardiac Profile EKG, CXR Famotidine, viscous lidocaine, Maloox 08/03/17 17:27 EKG: NSR with absent STD, MARQUES, TWI. Normal axis and interval duration. 08/03/17 17:27 CBC, CMP: Unremarkable UA: 2+ blood 0 RBC Trop: Neg 08/03/17 17:30 Patient stable and ready for d/c with return precautions.Advised to f/u with outpatient provider. *DC/Admit/Observation/Transfer Diagnosis at time of Disposition: Pill esophagitis - Discharge Dispostion Disposition: HOME Condition at time of disposition: Stable Admit: No - Referrals Referrals: Markell Coleman MD [Primary Care Provider] - Lamont Mcfarlane MD [Staff Physician] - - Patient Instructions Printed Discharge Instructions: DI for Atypical Chest Pain, DI for Esophagitis Additional Instructions: Please return to the emergency department with any new or worsening symptoms or concerns. Please follow up with your outpatient primary care provider or shop mechanic helper within the next 24-72 hours. - Post Discharge Activity - Attestations Physician Attestion: 08/03/17 17:30 I attest to the information provided in this note.
[2017-08-03] MEDS ORDERED: FAMOTIDINE IV 20 MG/12 ML VIAL IVPUSH ONE (16:09)
[2017-08-03 16:39] LABS: BASO % 0.4 % (0-2.0); HEMATOCRIT 42.8 % (32.4-45.2); HEMOGLOBIN 14.2 GM/dL (10.7-15.3); LYMPH % 24.7 % (8-40); MCH 28.1 pg (25.7-33.7); MCHC 33.2 g/dl (32.0-36.0); MEAN CELL VOLUME 84.7 fl (80-96); MEAN PLT VOLUME 8.1 fl (7.5-11.1); MONO % 4.4 % (3.8-10.2); NEUT % 69.5 % (42.8-82.8); PLATELET COUNT 313 K/MM3 (134-434); RBC 5.05 M/mm3 (3.60-5.2); RDW 13.2 % (11.6-15.6); WHITE BLOOD COUNT 10.4 K/mm3 (4.0-10.0)
[2017-08-03 16:42] LABS: URINE APPEARANCE CLEAR; URINE BILIRUBIN NEGATIVE (NEGATIVE); URINE BLOOD 2+ (NEGATIVE); URINE COLOR COLORLESS; URINE GLUCOSE (UA) NEGATIVE (NEGATIVE); URINE KETONE NEGATIVE (NEGATIVE); URINE LEUK ESTERASE NEGATIVE (NEGATIVE); URINE NITRITE NEGATIVE (NEGATIVE); URINE PROTEIN NEGATIVE (NEGATIVE); URINE UROBILINOGEN NEGATIVE mg/dL (0.2-1.0)
[2017-08-03 16:48] LABS: URINE MUCUS RARE
[2017-08-03] MEDS ORDERED: FAMOTIDINE 20 MG/50 ML IVPB 20 MG/50 ML MG IVPB ONE (16:48)
[2017-08-03] MEDS ORDERED: MAG HYDROX/AL HYDROX/SIMETH 30 ML UNIT-DOSE CUP PO PRN (16:54)
[2017-08-03] MEDS ORDERED: LIDOCAINE VISCOUS 2% ORAL/TOP 20 ML UNIT-DOSE CUP MM ONE (16:54)
[2017-08-03 16:55] LABS: INR 0.98 (0.82-1.09); PROTHROMBIN TIME (PATIENT) 11.1 SEC (9.98-11.88)
[2017-08-03 17:16] LABS: ANION GAP 7 (8-16); BILIRUBIN,TOTAL 0.3 mg/dL (0.2-1.0); BLOOD UREA NITROGEN 11 mg/dL (7-18); CALCIUM 8.5 mg/dL (8.5-10.1); CHLORIDE 104 mmol/L (98-107); CO2 27 mmol/L (21-32); CREATININE 0.6 mg/dL (0.55-1.02); GLUCOSE,RANDOM 85 mg/dL (74-106); POTASSIUM 3.5 mmol/L (3.5-5.1); SGOT/AST 11 U/L (15-37); SGPT/ALT 24 U/L (12-78); SODIUM 138 mmol/L (136-145); TOT PROT 7.3 g/dl (6.4-8.2)
[2017-08-03 17:17] LABS: ALK PHOS 50 U/L (45-117)
[2017-08-03] MEDS ORDERED: MAG HYDROX/AL HYDROX/SIMETH 30 ML UNIT-DOSE CUP ONE (18:09)
[2017-08-03] MEDS ORDERED: LIDOCAINE VISCOUS 2% ORAL/TOP 20 ML UNIT-DOSE CUP ONE (18:09)
[2017-08-03 18:24] VITALS: BP 126/84; PULSE 72; TEMP 97.6
[2017-08-03 18:24] LABS: LIPASE 274 U/L (73-393)
== END 2017-08-03 18:24 | disposition home or self-care (01) ==
LOC: JER 14:25
PROC: 3E033GC Introduction of Other Therapeutic Substance into Peripheral Vein, Percutaneous Approach (ICD-10-PCS; principal; 2017-08-03)
DX: K20.8 Other esophagitis (principal); I10 Essential (primary) hypertension; E78.00 Pure hypercholesterolemia, unspecified
CPT/HCPCS: 36415; 80053; 81003; 81015; 82550; 83690; 84484; 84703; 85025; 85610; 93005; 93010; 96365; 99285-25

== ENCOUNTER 2017-11-29 00:27 | Emergency (ER) | payer OTHER ==
[2017-11-29] MEDS ORDERED: SODIUM CHLORIDE 1,000 ML IV STA (01:09)
[2017-11-29] MEDS ORDERED: FAMOTIDINE 20 MG/50 ML IVPB 20 MG/50 ML MG IVPB ONE ×2 (01:09→02:51)
[2017-11-29] MEDS ORDERED: MAG HYDROX/AL HYDROX/SIMETH 30 ML UNIT-DOSE CUP PO ONE (01:09)
[2017-11-29] MEDS ORDERED: ONDANSETRON 4 MG/2 ML VIAL IVPUSH ONE (01:09)
--- NOTE | 2017-11-29 01:13 | PDOC ---
Attending Attestation - Resident Resident Name: Donal Siegel - ED Attending Attestation I have performed the following: I have examined & evaluated the patient, The case was reviewed & discussed with the resident, I agree w/resident's findings & plan, Exceptions are as noted - HPI HPI: 11/29/17 01:16 Ms Kenan wallace is a 42 year old female with a history of HTN who presents for evaluation of chest pain and nausea. She tells me that she has these symptoms daily She has been seen by her pmd for this and is actually scheduled in 2 days for an endoscopy No fevers or chills No shortness of breath No vomiting, no diarrhea She took her blood pressure and noted that it was elevated and this is what prompted her visit to the ER - Physicial Exam PE: 11/29/17 01:19 General Appearance: Nourished. No Apparent Distress Respiratory/Chest: Lungs Clear, Normal Breath Sounds. Cardiovascular: Regular Rhythm, Regular Rate. No Murmur, Gallops, Rubs Gastrointestinal/Abdominal: Normal Bowel Sounds, Soft. No Guarding, Rebound, Tenderness Musculoskeletal: No CVA Tenderness Extremity: Normal Capillary Refill Integumentary: Normal Color, Dry, Warm Neurologic: Fully Oriented, Alert, Normal Mood/Affect, Normal Response, - Medical Decision Making 11/29/17 01:19 42 year old female with a history of HTN who presents for evaluation of chest burning pain and nausea. She has had these symptoms daily for some times No fevers or chills Labs wnl Pt feels better after PPI Pt is requesting to go home Clinical Impression: dyspepsia, initial presentation
--- NOTE | 2017-11-29 01:20 | PDOC ---
History of Present Illness - General Stated Complaint: CHEST PAIN Time Seen by Provider: 11/29/17 01:01 - History of Present Illness Initial Comments: 11/29/17 01:16 The patient is a 42 year old female with a history of HTN who presents for evaluation of chest pain and nausea. The patient reports onset of nausea and burning chest pain earlier this evening. She noted that her blood pressure was elevated at home prompting her presentation to the ED for further evaluation. She notes that she has not taken her blood pressure medications over the past few days. She otherwise denies fevers, chills, SOB, vomiting, abdominal pain, or changes with urination or bowel movements. Past History - Past Medical History Allergies/Adverse Reactions: Allergies Allergy/AdvReac Type Severity Reaction Status Date / Time adhesive AdvReac Verified 11/29/17 01:23 Home Medications: Ambulatory Orders Amlodipine Besylate 5 mg PO DAILY 08/03/17 Losartan Potassium 50 mg PO DAILY 08/03/17 Atorvastatin Ca [Lipitor] 20 mg PO HS 08/21/17 Anemia: No Asthma: No Cancer: No Cardiac Disorders: No CVA: No COPD: No CHF: No Dementia: No Diabetes: No GI Disorders: No Disorders: No HTN: Yes Hypercholesterolemia: Yes Liver Disease: No Seizures: No Thyroid Disease: No - Surgical History Abdominal Surgery: Yes (oscar Stewart) Appendectomy: No Cardiac Surgery: No Cholecystectomy: No Lung Surgery: No Neurologic Surgery: No - Immunization History Immunization Up to Date: Yes - Suicide/Smoking/Psychosocial Hx Smoking History: Current every day smoker Have you smoked in the past 12 months: Yes Hx Alcohol Use: No Drug/Substance Use Hx: No Substance Use Type: Alcohol Hx Substance Use Treatment: No Review of Systems - Review of Systems Comments:: 11/29/17 01:18 Constitutional: No fevers, chills, fatigue, malaise HEENT: No Rhinorrhea, nasal congestion, visual changes Cardiovascular: Chest pain. No syncope, palpitations, lightheadedness Respiratory: No Cough, SOB, Hemoptysis, Gastrointestinal: Nausea. No Abdominal pain, Vomiting, Constipation, Diarrhea, Melena Genitourinary: No Dysuria, Frequency, Urgency, Hesitancy, Hematuria, Flank pain Musculoskeletal: No Myalgia, arthralgia Skin: No rashes, itching, bruising, pallor Neurologic: No Headache, Dizziness, Numbness, Weakness, or Tingling Psychiatric: No Hallucinations. No SI or HI *Physical Exam - Physical Exam Comments: 11/29/17 01:19 General Appearance: Nourished. No Apparent Distress HEENT: EOMI, RENY. No Pharyngeal Erythema, Tonsillar Exudate, Tonsillar Erythema Neck: No Cervical Lymphadenopathy Respiratory/Chest: Lungs Clear, Normal Breath Sounds. No Crackles, Rales, Rhonchi, Wheezing Cardiovascular: Regular Rhythm, Regular Rate. No Murmur, Gallops, Rubs Gastrointestinal/Abdominal: Normal Bowel Sounds, Soft. No Guarding, Rebound, Tenderness Musculoskeletal: No CVA Tenderness Extremity: Normal Capillary Refill Integumentary: Normal Color, Dry, Warm Neurologic: Fully Oriented, Alert, Normal Mood/Affect, Normal Response, Heart Score/ECG Review #1 ECG reviewed & interpreted by me at: 03:45 General ECG Interpretation: Sinus Rhythm, Normal Rate, Normal Intervals, No acute ischemic changes ED Treatment Course - LABORATORY CBC & Chemistry Diagram: 11/29/17 01:31 11/29/17 01:31 - RADIOLOGY Radiology Studies Ordered: Category Date Time Status CHEST X-RAY PORTABLE* [RAD] Stat Radiology 11/29/17 01:12 Ordered - Medications Given in the ED: ED Medications Discontinued Medications Generic Name Dose Route Start Last Admin Trade Name Freq PRN Reason Stop Dose Admin Al Hydroxide/Mg Hydroxide 30 ml 11/29/17 01:09 11/29/17 01:16 Mylanta Oral Suspension - PO 11/29/17 01:10 30 ml ONCE ONE Administration Ondansetron HCl 4 mg 11/29/17 01:09 11/29/17 01:16 Zofran Injection IVPUSH 11/29/17 01:10 4 mg ONCE ONE Administration Medical Decision Making - Medical Decision Making 11/29/17 01:19 The patient is a 42 year old female with a history of HTN who presents for evaluation of chest pain and nausea. Differential includes but is not limited to: ACS, Gastritis, Viral illness, infectious, metabolic derangement. Given the patient's history and physical exam, we will obtain a cbc, cmp, troponin, lipase, ekg, chest plain film to evaluate further for possible etiologies. We will treat in the meantime with iv fluids, zofran, pepcid and maalox. We will continue to monitor and reassess while here in the ED. 11/29/17 03:15 CBC, cmp, troponin, lipase are unremarkable. Chest plain film is unremarkable as preliminarily read by ER physician. We are comfortable discharging the patient home at this time with primary care provider follow up. The patient informed us that she is already scheduled for endoscopy in the next few days. We discussed the results, plan and return precautions with the patient who voiced understanding and is agreeable with the plan. *DC/Admit/Observation/Transfer Diagnosis at time of Disposition: Gastritis Qualifiers: Gastritis type: unspecified gastritis Chronicity: unspecified Gastritis bleeding: presence of bleeding unspecified Qualified Code(s): K29.70 - Gastritis , unspecified, without bleeding - Discharge Dispostion Disposition: HOME Condition at time of disposition: Stable Decision to Admit order: No - Referrals Referrals: David Sheriff MD [Primary Care Provider] - - Patient Instructions Printed Discharge Instructions: DI for Atypical Chest Pain Additional Instructions: Please return to the ER if you experience concerning or worsening symptoms including worsening chest pain, difficulty breathing or vomiting. Your lab results were normal here in the ER. It is important that you call to schedule a follow up appointment with you primary care provider within 2-3 days to discuss your ER visit and further management of your symptoms. - Post Discharge Activity
[2017-11-29 01:23] VITALS: BP 161/100; PULSE 88; TEMP 98.2; BMI 28.3
[2017-11-29] MEDS ORDERED: MAG HYDROX/AL HYDROX/SIMETH 30 ML UNIT-DOSE CUP ONE (01:38)
[2017-11-29] MEDS ORDERED: ONDANSETRON 4 MG/2 ML VIAL ONE (01:39)
[2017-11-29 01:58] LABS: BASO % 0.6 % (0-2.0); HEMATOCRIT 39.6 % (32.4-45.2); HEMOGLOBIN 13.2 GM/dL (10.7-15.3); LYMPH % 35.5 % (8-40); MCHC 33.3 g/dl (32.0-36.0); MEAN CELL VOLUME 84.1 fl (80-96); MEAN PLT VOLUME 7.7 fl (7.5-11.1); MONO % 6.5 % (3.8-10.2); NEUT % 53.4 % (42.8-82.8); PLATELET COUNT 328 K/MM3 (134-434); RBC 4.71 M/mm3 (3.60-5.2); RDW 13.8 % (11.6-15.6); WHITE BLOOD COUNT 6.8 K/mm3 (4.0-10.0)
[2017-11-29 02:27] LABS: ALBUMIN 3.5 g/dl (3.4-5.0); ANION GAP 4 (8-16); BILIRUBIN,TOTAL 0.2 mg/dL (0.2-1.0); BLOOD UREA NITROGEN 13 mg/dL (7-18); CALCIUM 8.4 mg/dL (8.5-10.1); CHLORIDE 109 mmol/L (98-107); CO2 27 mmol/L (21-32); CREATININE 0.9 mg/dL (0.55-1.02); GLUCOSE,RANDOM 104 mg/dL (74-106); POTASSIUM 3.9 mmol/L (3.5-5.1); SGOT/AST 14 U/L (15-37); SGPT/ALT 19 U/L (12-78); SODIUM 140 mmol/L (136-145); TOT PROT 6.9 g/dl (6.4-8.2)
[2017-11-29 02:30] LABS: ALK PHOS 48 U/L (45-117)
[2017-11-29 02:37] LABS: LIPASE 267 U/L (73-393)
--- NOTE | 2017-11-29 13:41 | EKG ---
Test Reason : Blood Pressure : / mmHG Vent. Rate : 079 BPM Atrial Rate : 079 BPM P-R Int : 144 ms QRS Dur : 086 ms QT Int : 394 ms P-R-T Axes : 074 072 060 degrees QTc Int : 451 ms NORMAL SINUS RHYTHM NORMAL ECG WHEN COMPARED WITH ECG OF 03-AUG-2017 14:54, NO SIGNIFICANT CHANGE WAS FOUND Confirmed by MD Tong Edward ([id number]) on 11/29/2017 1:41:31 PM Referred By: Confirmed By:Suhail Tong MD
== END 2017-11-29 03:32 | disposition home or self-care (01) ==
LOC: JER 00:27
PROC: 3E0337Z Introduction of Electrolytic and Water Balance Substance into Peripheral Vein, Percutaneous Approach (ICD-10-PCS; principal; 2017-11-29)
PROC: 3E033GC Introduction of Other Therapeutic Substance into Peripheral Vein, Percutaneous Approach (ICD-10-PCS; 2017-11-29)
DX: K29.70 Gastritis, unspecified, without bleeding (principal); I10 Essential (primary) hypertension; E78.00 Pure hypercholesterolemia, unspecified; Z91.14 Patient's other noncompliance with medication regimen
CPT/HCPCS: 36415; 71045-TC-FY; 80053; 82550; 83690; 84484; 85025; 93005; 93010; 96365; 96375; 99282-25; J7030

== ENCOUNTER 2019-03-11 17:10 | Emergency (ER) | payer OTHER ==
[2019-03-11] MEDS ORDERED: SODIUM CHLORIDE 1,000 ML IV STA ×2 (17:25→19:34)
--- NOTE | 2019-03-11 17:25 | PDOC ---
History of Present Illness - General Chief Complaint: Chest Pain Stated Complaint: CHEST PAIN Time Seen by Provider: 03/11/19 17:25 History Source: Patient Exam Limitations: No Limitations - History of Present Illness Initial Comments: Kenyatta Edwards is a 43 yo obese F w a hx of HTN and hcl who presents to the [facility] er with on and off chest pain for the past 3 days. She states the pain is substernal and radiates up her throat. She rates her pain as 6/10 at the present time. The pain does not radiate to the back or her arms. She also says the pain gets worse when she walks fast or when she goes up stairs. Patient states that she believes her legs have also been swelling recently. She has a strong family history of heart attacks at a young age and the patient is concerned that she is having small heart attacks. Denies SOB, difficulty breathing, back pain, orthopnea, fevers, chills, infections. PCP: Markell Coleman PSH: None reported Allergies: Adhesive tape Social Hx: Smokes Hooka. Denies smoking cigarettes, drinking, or other substance usage. Past History - Past Medical History Allergies/Adverse Reactions: Allergies Allergy/AdvReac Type Severity Reaction Status Date / Time adhesive AdvReac Verified 03/11/19 18:11 Home Medications: Ambulatory Orders Amlodipine Besylate 5 mg PO DAILY 08/03/17 Losartan Potassium 50 mg PO DAILY 08/03/17 Atorvastatin Ca [Lipitor] 20 mg PO HS 08/21/17 Anemia: No Asthma: No Cancer: No Cardiac Disorders: No CVA: No COPD: No CHF: No Dementia: No Diabetes: No GI Disorders: No Disorders: No HTN: Yes Hypercholesterolemia: Yes Liver Disease: No Seizures: No Thyroid Disease: No - Surgical History Abdominal Surgery: Yes (Tummy tuck, lipo) Appendectomy: No Cardiac Surgery: No Cholecystectomy: No Lung Surgery: No Neurologic Surgery: No - Immunization History Immunization Up to Date: Yes - Suicide/Smoking/Psychosocial Hx Smoking History: Current every day smoker Have you smoked in the past 12 months: Yes Hx Alcohol Use: No Drug/Substance Use Hx: No Substance Use Type: Alcohol Hx Substance Use Treatment: No Review of Systems - Review of Systems Able to Perform ROS?: Yes Comments:: CONSTITUTIONAL: Absent: fever, no chills, no fatigue EYES: Absent: visual changes ENT: Absent: ear pain, no sore throat CARDIOVASCULAR: Present: Chest pain, palpitations, leg swelling RESPIRATORY: Absent: cough, no SOB GI: Present: Nausea Absent: abdominal pain, no vomiting, no constipation, no diarrhea GENITOURINARY: Absent: dysuria, no frequency, no hematuria MUSKULOSKELETAL: Absent: back pain, no arthralgia, no myalgia SKIN: Absent: rash NEURO: Absent: headache *Physical Exam - Physical Exam Comments: GENERAL: Well-appearing, well-nourished. No apparent distress. HEENT: Normocephalic, atraumatic. PERRL, EOM intact. CARDIOVASCULAR: Normal S1, S2. Regular rate and rhythm. PULMONARY: No evidence of respiratory distress. Lungs clear to auscultation bilaterally. No wheezing, rales or rhonchi. ABDOMEN: Soft, non-distended, non-tender. EXTREMITIES: Normal ROM in all four extremities. No gross deformities. SKIN: Warm, dry. No rash NEUROLOGICAL: No focal neurological deficits. Heart Score/ECG Review - History History: Moderately suspicious - Electrocardiogram EKG: Non specific repolarization disturbance - Age Age: </= 45 - Risk Factors Risk Factors Heart Score: Yes Hx Hypercholesterolemia, Yes Hx Hypertension, Yes Positive family hx of cardiac disease, Yes Hx Obesity Based on the list above the patient has:: >/=3 risk factors or Hx atherosclerotic disease - Troponin Troponin: </= normal limit - Score Heart Score - Total: 4 ED Treatment Course - LABORATORY CBC & Chemistry Diagram: 03/11/19 17:30 03/11/19 17:30 Medical Decision Making - Medical Decision Making Kenyatta Edwards is a 43 yo obese F w a hx of HTN and hcl who presents to the [facility] er with on and off chest pain for the past 3 days. She states the pain is substernal and radiates up her throat. She rates her pain as 6/10 at the present time. The pain does not radiate to the back or her arms. She also says the pain gets worse when she walks fast or when she goes up stairs. Patient states that she believes her legs have also been swelling recently. She has a strong family history of heart attacks at a young age and the patient is concerned that she is having small heart attacks. Vital Signs Temp Pulse Resp BP Pulse Ox 97.7 F 109 H 17 103/82 100 03/11/19 17:10 03/11/19 18:44 03/11/19 18:44 03/11/19 18:44 03/11/19 18:44 DDx IBNLT: ACS/IL, pneumothorax, GERD, PUD, MSK chest pain/costocondritis, electrolyte/metabolic disturbance Plan: Labs, EKG, CXR, analgesia, GI cocktail, likely admit tele obs. EKG: Sinus tachy rate of 118, narrow complexes, normal axis, left atrial enlargement, borderline LVH, Non-specific T wave abnormality, no abnormal TWI's CXR: Unremarkable Labs: Unremarkable MDM: Patient is persistently tachycardic despite 1L of fluid, aspirin, tylenol, pepcid and maalox - Will obtain D-Dimer to try and rule out PE. Disposition: Admit to Tele obs for chest pain Patient will be signed out to Dr. Pham to complete ED course and then admit to hospital. *DC/Admit/Observation/Transfer Diagnosis at time of Disposition: Chest pain Qualifiers: Chest pain type: unspecified Qualified Code(s): R07.9 - Chest pain, unspecified - Referrals Referrals: Markell Coleman MD [Primary Care Provider] - - Patient Instructions - Post Discharge Activity
[2019-03-11] MEDS ORDERED: ACETAMINOPHEN 325 MG TABLET (FP) PO ONE (17:27)
[2019-03-11] MEDS ORDERED: MAG HYDROX/AL HYDROX/SIMETH -MYLANTA- ORAL SUSPENSION PO ONE (17:36)
[2019-03-11] MEDS ORDERED: FAMOTIDINE 20 MG/50 ML IVPB 20 MG/50 ML MG IVPB ONE ×2 (17:36→17:43)
[2019-03-11] MEDS ORDERED: ACETAMINOPHEN 325 MG TABLET (FP) ONE (17:42)
[2019-03-11] MEDS ORDERED: MAG HYDROX/AL HYDROX/SIMETH 30 ML UNIT-DOSE CUP ONE (17:42)
[2019-03-11 17:46] LABS: BASO % 0.7 % (0-2.0); EOS % 1.8 % (0-4.5); HEMATOCRIT 45.9 % (32.4-45.2); HEMOGLOBIN 15.2 GM/dL (10.7-15.3); LYMPH % 22.6 % (8-40); MEAN CELL VOLUME 84.8 fl (80-96); MEAN PLT VOLUME 7.5 fl (7.5-11.1); MONO % 4.7 % (3.8-10.2); NEUT % 70.2 % (42.8-82.8); PLATELET COUNT 381 K/MM3 (134-434); RBC 5.41 M/mm3 (3.60-5.2); RDW 13.8 % (11.6-15.6); WHITE BLOOD COUNT 7.8 K/mm3 (4.0-10.0)
[2019-03-11 18:00] LABS: INR 0.95 (0.83-1.09); PROTHROMBIN TIME (PATIENT) 11.2 SEC (9.7-13.0)
[2019-03-11] MEDS ORDERED: ASPIRIN 81 MG CHEWABLE TABLETS PO ONE (18:07)
[2019-03-11 18:11] VITALS: TEMP 97.7; BMI 30.9
[2019-03-11 18:24] LABS: ALBUMIN 4.2 g/dl (3.4-5.0); ALK PHOS 63 U/L (45-117); ANION GAP 9 MMOL/L (8-16); BILIRUBIN,TOTAL 0.2 mg/dL (0.2-1); BLOOD UREA NITROGEN 14.1 mg/dL (7-18); CHLORIDE 105 mmol/L (98-107); CO2 25 mmol/L (21-32); CREATININE 0.8 mg/dL (0.55-1.3); GLUCOSE,RANDOM 106 mg/dL (74-106); MAGNESIUM 2.2 mg/dL (1.8-2.4); N-TERMINAL BNP 8.4 pg/ml (5-125); POTASSIUM 4.1 mmol/L (3.5-5.1); SGOT/AST 18 U/L (15-37); SGPT/ALT 30 U/L (13-61); SODIUM 139 mmol/L (136-145); TOT PROT 7.9 g/dl (6.4-8.2)
[2019-03-11] MEDS ORDERED: ASPIRIN 81 MG CHEWABLE TABLETS ONE (18:32)
--- NOTE | 2019-03-11 19:07 | PDOC ---
*Physical Exam - Vital Signs Last Vital Signs Temp Pulse Resp BP Pulse Ox 97.7 F 109 H 17 103/82 100 03/11/19 17:10 03/11/19 18:44 03/11/19 18:44 03/11/19 18:44 03/11/19 18:44 Heart Score/ECG Review - History History: Slightly suspicious - Electrocardiogram EKG: Non specific repolarization disturbance - Age Age: </= 45 - Risk Factors Risk Factors Heart Score: Yes Hx Hypercholesterolemia, Yes Hx Hypertension, Yes Hx Obesity Based on the list above the patient has:: >/=3 risk factors or Hx atherosclerotic disease - Troponin Troponin: </= normal limit - Score Heart Score - Total: 3 ED Treatment Course - LABORATORY CBC & Chemistry Diagram: 03/11/19 17:30 03/11/19 17:30 - ADDITIONAL ORDERS Additional order review: Laboratory Results 03/11/19 03/11/19 03/11/19 17:35 17:30 17:30 PT with INR 11.20 INR 0.95 Sodium Potassium Chloride Carbon Dioxide Anion Gap BUN Creatinine Est GFR (CKD-EPI)AfAm Est GFR (CKD-EPI)NonAf Random Glucose Calcium Magnesium Cancelled Total Bilirubin AST ALT Alkaline Phosphatase Troponin I B-Natriuretic Peptide Total Protein Albumin Serum , Qual Negative 03/11/19 17:30 PT with INR INR Sodium 139 Potassium 4.1 Chloride 105 Carbon Dioxide 25 Anion Gap 9 BUN 14.1 Creatinine 0.8 Est GFR (CKD-EPI)AfAm 105.39 Est GFR (CKD-EPI)NonAf 90.93 Random Glucose 106 Calcium 9.0 Magnesium 2.2 Total Bilirubin 0.2 AST 18 ALT 30 Alkaline Phosphatase 63 Troponin I < 0.02 B-Natriuretic Peptide 8.4 Total Protein 7.9 Albumin 4.2 Serum , Qual 03/11/19 17:30 RBC 5.41 H MCV 84.8 MCHC 33.0 RDW 13.8 MPV 7.5 Neutrophils % 70.2 D Lymphocytes % 22.6 D Monocytes % 4.7 Eosinophils % 1.8 Basophils % 0.7 - Medications Given in the ED: ED Medications Discontinued Medications Generic Name Dose Route Start Last Admin Trade Name Freq PRN Reason Stop Dose Admin Acetaminophen 650 mg 03/11/19 17:27 03/11/19 17:45 Tylenol - PO 03/11/19 17:28 650 mg ONCE ONE Administration Al Hydroxide/Mg Hydroxide 30 ml 03/11/19 17:36 03/11/19 17:45 Mylanta Suspension - PO 03/11/19 17:37 30 ml ONCE ONE Administration Aspirin 162 mg 03/11/19 18:07 03/11/19 18:33 Asa - PO 03/11/19 18:08 162 mg ONCE ONE Administration Sodium Chloride 1,000 mls @ 1,000 mls/hr 03/11/19 17:25 03/11/19 17:37 Normal Saline - IV 03/11/19 18:24 1,000 mls/hr ASDIR STA Administration Famotidine/Sodium Chloride 20 mg in 50 mls @ 100 mls/hr 03/11/19 17:36 17:46 Pepcid 20 Mg Premixed Ivpb - IVPB 03/11/19 18:05 100 mls/hr ONCE ONE Administration Medical Decision Making - Medical Decision Making Pt signed out to me by Dr. Rahman, see his note. 43 year old female with PMH HTN, HLD, obesity presented to ED for substernal chest pain radiating up her chest, exertional, associated with tachycardia and increased symmetrical lower extremity swelling. On Line Csr: unknown name -Last ECHO: last week, told she had a hole in her heart, but normal function -Last STRESS: last year, told normal results Initial Vital Signs Temp Pulse Resp BP Pulse Ox 97.7 F 113 H 16 160/102 H 100 03/11/19 17:10 03/11/19 17:10 03/11/19 17:10 03/11/19 17:10 03/11/19 17:10 Afebrile. Tachycardia. No tachypnea. Hypertensive. No hypoxia on room air. EKG showed sinus tachycardia with changes to the inferior leads, no STEMI, no ST depression. ED Medications Discontinued Medications Generic Name Dose Route Start Last Admin Trade Name Freq PRN Reason Stop Dose Admin Acetaminophen 650 mg 03/11/19 17:27 03/11/19 17:45 Tylenol - PO 03/11/19 17:28 650 mg ONCE ONE Administration Al Hydroxide/Mg Hydroxide 30 ml 03/11/19 17:36 03/11/19 17:45 Mylanta Suspension - PO 03/11/19 17:37 30 ml ONCE ONE Administration Aspirin 162 mg 03/11/19 18:07 03/11/19 18:33 Asa - PO 03/11/19 18:08 162 mg ONCE ONE Administration Sodium Chloride 1,000 mls @ 1,000 mls/hr 03/11/19 17:25 03/11/19 17:37 Normal Saline - IV 03/11/19 18:24 1,000 mls/hr ASDIR STA Administration Famotidine/Sodium Chloride 20 mg in 50 mls @ 100 mls/hr 03/11/19 17:36 17:46 Pepcid 20 Mg Premixed Ivpb - IVPB 03/11/19 18:05 100 mls/hr ONCE ONE Administration Medications above given without resolution of chest pain. Vital Signs Temperature 97.7 F 03/11/19 17:10 Pulse Rate 114 H 03/11/19 19:04 Respiratory Rate 18 03/11/19 19:04 Blood Pressure 103/82 03/11/19 18:44 O2 Sat by Pulse Oximetry (%) 100 03/11/19 19:04 Tachycardia unresolved with fluid hydration. Pt now borderline hypotensive. No hypoxia. EKG performed at 1745: rate 118, regular rhythm, normal axis, normal intervals, no acute ST changes. CBC WBC 7.8 K/mm3 (4.0-10.0) 03/11/19 17:30 RBC 5.41 M/mm3 (3.60-5.2) H 03/11/19 17:30 Hgb 15.2 GM/dL (10.7-15.3) 03/11/19 17:30 Hct 45.9 % (32.4-45.2) H D 03/11/19 17:30 MCV 84.8 fl (80-96) 03/11/19 17:30 MCH 28.0 pg (25.7-33.7) 03/11/19 17:30 MCHC 33.0 g/dl (32.0-36.0) 03/11/19 17:30 RDW 13.8 % (11.6-15.6) 03/11/19 17:30 Plt Count 381 K/MM3 (134-434) 03/11/19 17:30 MPV 7.5 fl (7.5-11.1) 03/11/19 17:30 Absolute Neuts (auto) 5.5 K/mm3 (1.5-8.0) 03/11/19 17:30 Neutrophils % 70.2 % (42.8-82.8) D 03/11/19 17:30 Lymphocytes % 22.6 % (8-40) D 03/11/19 17:30 Monocytes % 4.7 % (3.8-10.2) 03/11/19 17:30 Eosinophils % 1.8 % (0-4.5) 03/11/19 17:30 Basophils % 0.7 % (0-2.0) 03/11/19 17:30 Nucleated RBC % 0 % (0-0) 03/11/19 17:30 No leukocytosis. No anemia. CMP Sodium 139 mmol/L (136-145) 03/11/19 17:30 Potassium 4.1 mmol/L (3.5-5.1) 03/11/19 17:30 Chloride 105 mmol/L (98-107) 03/11/19 17:30 Carbon Dioxide 25 mmol/L (21-32) 03/11/19 17:30 Anion Gap 9 MMOL/L (8-16) 03/11/19 17:30 BUN 14.1 mg/dL (7-18) 03/11/19 17:30 Creatinine 0.8 mg/dL (0.55-1.3) 03/11/19 17:30 Est GFR (CKD-EPI)AfAm 105.39 03/11/19 17:30 Est GFR (CKD-EPI)NonAf 90.93 03/11/19 17:30 Random Glucose 106 mg/dL (74-106) 03/11/19 17:30 Calcium 9.0 mg/dL (8.5-10.1) 03/11/19 17:30 Magnesium 2.2 mg/dL (1.8-2.4) 03/11/19 17:30 Total Bilirubin 0.2 mg/dL (0.2-1) 03/11/19 17:30 AST 18 U/L (15-37) 03/11/19 17:30 ALT 30 U/L (13-61) 03/11/19 17:30 Alkaline Phosphatase 63 U/L (45-117) 03/11/19 17:30 Troponin I < 0.02 ng/ml (0.00-0.05) 03/11/19 17:30 B-Natriuretic Peptide 8.4 pg/ml (5-125) 03/11/19 17:30 Total Protein 7.9 g/dl (6.4-8.2) 03/11/19 17:30 Albumin 4.2 g/dl (3.4-5.0) 03/11/19 17:30 Serum , Qual Negative 03/11/19 17:35 No electrolyte abnormalities. No JOHN. Troponin wnl. BNP wnl. Serum negative. INR, PTT INR 0.95 (0.83-1.09) 03/11/19 17:30 Pending D-dimer, CXR report. 03/11/19 19:34 D-dimer positive. Risk of PE discussed with pt and need for CTA chest. Pt expressed that IV contrast has made her face flush in the past, but she has no allergy to Contrast and has received it before. Imaging ordered: CTA chest Medications ordered: normal saline bolus 1000 cc @500/hour 03/11/19 19:56 CXR report: Name: [facility] DEPARTMENT OF RADIOLOGY Phys: Yuriy Rahman RESIDENT : 1975 Age: 43 Sex: F [facility] Acct: [id number] Loc: [address] Exam Date: 03/11/19 Status: [place] [address] Unit Number: [id number] EXAM#: TYPE/EXAM: RESULT: [id number] RAD/CHEST X-RAY PORTABLE* Chest: Chest pain A single AP view of the chest is been submitted. Since 11/29/2017 is a better inspiration and no sign of an acute process. The bones and soft tissues are intact. The mediastinum is not widened. The angles are sharp. Impression: No acute chest pathology. Reported By: Munir Fitzgerald MD 03/12/19 0645 03/11/19 20:50 Vital Signs Pulse Rate 108 H 03/11/19 20:48 Respiratory Rate 18 03/11/19 20:48 Blood Pressure 140/92 03/11/19 20:48 O2 Sat by Pulse Oximetry (%) 100 03/11/19 20:48 Tachycardia improving. 03/11/19 22:37 Repeat EKG performed at 2227: rate 95, regular rhythm, normal axis, no acute ST changes. 03/11/19 23:07 CTA report: Name: DAL[facility] S[facility] DEPARTMENT OF RADIOLOGY Phys: Martine Pham RESIDENT : 1975 Age: 43 Sex: F [facility] Acct: [id number] Loc: [address] Exam Date: 03/11/19 Status: [place] [address] Unit Number: [id number] EXAM#: TYPE/EXAM: RESULT: CT/CHEST CTA HISTORY PROVIDED: Rule out PE. TECHNIQUE: Sequential axial images were obtained from the thoracic inlet through the domes of the diaphragm following the administration of intravenous contrast material. CTA pulmonary embolism protocol was utilized, including coronal and oblique coronal MIP images. There is good opacification of the central pulmonary vasculature with no filling defects suspicious for pulmonary embolism. The lung alexander are free of pulmonary masses, areas of acute consolidation or pleural effusions. No mediastinal masses, fluid collections or lymphadenopathy are identified. The heart is not enlarged. There is no evidence of thoracic aortic aneurysm or dissection. The patient is S/P bilateral breast implants. Limited evaluation of the upper abdomen demonstrates a gallstone within the gallbladder and a nonobstructing calculus measuring 4 mm within the upper pole of the left kidney. IMPRESSION: No evidence of pulmonary embolism or acute pathology within the chest. Please see above discussion. Vital Signs Temperature 97.7 F 03/11/19 17:10 Pulse Rate 95 H 03/11/19 23:09 Respiratory Rate 18 03/11/19 23:09 Blood Pressure 124/90 03/11/19 23:09 O2 Sat by Pulse Oximetry (%) 98 03/11/19 23:09 Pt is no longer tachycardic, reported chest pain has improved. Repeat troponin negative. I discussed admission/observation vs outpatient cardiology follow up with the patient. She elected to follow up outpatient. Return precautions given. *DC/Admit/Observation/Transfer Diagnosis at time of Disposition: Chest pain Qualifiers: Chest pain type: unspecified Qualified Code(s): R07.9 - Chest pain, unspecified - Discharge Dispostion Disposition: HOME Condition at time of disposition: Improved Decision to Admit order: No - Referrals Referrals: Markell Coleman MD [Primary Care Provider] - - Patient Instructions Printed Discharge Instructions: DI for Chest Pain, How to Quit Smoking, Why It Is Important to Quit Smoking If You Have Heart Failure Additional Instructions: Follow up with your primary care doctor within three days. Your care is not complete until you follow up. Bring all paperwork you were given today. Bring a list of all medications you are taking. 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 Your care is not complete until you follow up. Bring all paperwork you were given today. Bring a list of all medications you are taking. STOP SMOKING NICOTINE. Return to the Emergency Department for increasing pain, chest pain, shortness of breath, vomiting, fever, lightheadedness, passing out or any other new, worsening or concerning symptoms. - Post Discharge Activity Forms/Work/School Notes: Back to Work
--- NOTE | 2019-03-11 21:19 | PDOC ---
Attending Attestation - Resident Resident Name: Yuriy Rahman - ED Attending Attestation I have performed the following: I have examined & evaluated the patient, The case was reviewed & discussed with the resident, I agree w/resident's findings & plan, Exceptions are as noted - HPI HPI: 03/11/19 21:17 43 yo female p/w chest pain and palpitations - Physicial Exam PE: 03/11/19 21:18 wnwd 43 yo female head ncat eyes eomi neck no jvd lungs cta b/l cvs tachycardia abd nontender skin warm and dry extremities mild edema neuro axox3,ambulatory psych appropriate - Medical Decision Making 03/11/19 21:19 pmh significant for hypertension family h/o cardiac demise in several family members ekg sinus tachycardia 118 bpm 03/11/19 21:21 cxr no ptx,no effusions, no infiltrates,normal cardiac silhouette 03/11/19 23:08 chest CTA was negative for pulmonary embolus, negative for infiltrates or consolidation, negative for thoracic aortic aneurysm or dissection pt's heart rate is now normal sinus 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
[2019-03-11 23:09] VITALS: BP 124/90; PULSE 95
--- NOTE | 2019-03-12 11:27 | EKG ---
Test Reason : Blood Pressure : / mmHG Vent. Rate : 095 BPM Atrial Rate : 095 BPM P-R Int : 136 ms QRS Dur : 084 ms QT Int : 372 ms P-R-T Axes : 060 060 043 degrees QTc Int : 467 ms NORMAL SINUS RHYTHM NONSPECIFIC ST ABNORMALITY ABNORMAL ECG WHEN COMPARED WITH ECG OF 11-MAR-2019 17:45, T WAVE VARIATION Confirmed by JOYCE ALVAREZ MD ([id number]) on 03/12/2019 11:26:33 AM Referred By: Confirmed By:JOYCE ALVAREZ MD
--- NOTE | 2019-03-12 11:28 | EKG ---
Test Reason : Blood Pressure : / mmHG Vent. Rate : 118 BPM Atrial Rate : 118 BPM P-R Int : 134 ms QRS Dur : 080 ms QT Int : 336 ms P-R-T Axes : 065 071 011 degrees QTc Int : 470 ms SINUS TACHYCARDIA POSSIBLE LEFT ATRIAL ENLARGEMENT NONSPECIFIC T WAVE ABNORMALITY ABNORMAL ECG WHEN COMPARED WITH ECG OF 29-NOV-2017 02:57, VENT. RATE HAS INCREASED BY 39 BPM T WAVE VARIATION Confirmed by KIM PAULA, JOYCE ([id number]) on 03/12/2019 11:28:37 AM Referred By: Confirmed By:JOYCE ALVAREZ MD
== END 2019-03-11 23:20 | disposition home or self-care (01) ==
LOC: JER 17:10
PROC: 3E0337Z Introduction of Electrolytic and Water Balance Substance into Peripheral Vein, Percutaneous Approach (ICD-10-PCS; principal; 2019-03-11)
PROC: 3E033GC Introduction of Other Therapeutic Substance into Peripheral Vein, Percutaneous Approach (ICD-10-PCS; 2019-03-11)
DX: R07.9 Chest pain, unspecified (principal); I10 Essential (primary) hypertension; E78.00 Pure hypercholesterolemia, unspecified; E66.9 Obesity, unspecified; Z68.30 Body mass index [BMI] 30.0-30.9, adult; Z82.49 Family history of ischemic heart disease and other diseases of the circulatory system
CPT/HCPCS: 36415; 71045-TC-FY; 71275-TC; 80053; 83735; 83880; 84484; 84703; 85025; 85379; 85610; 93005; 93010; 96361; 96365; 99283-25; J7030

== ENCOUNTER 2019-05-27 16:36 | Emergency (ER) | payer OTHER ==
[2019-05-27 16:56] VITALS: BMI 28.3
[2019-05-27] MEDS ORDERED: METOCLOPRAMIDE HCL INJECTION 10 MG/2 ML VIAL IVPB ONE (17:24)
[2019-05-27] MEDS ORDERED: ACETAMINOPHEN 1000 MG/100 ML VIAL (NON FORMULARY) IVPB ONE (17:24)
[2019-05-27] MEDS ORDERED: SODIUM CHLORIDE 0.9% 500 ML INFUS.BAG IV ONE (17:24)
[2019-05-27] MEDS ORDERED: FAMOTIDINE 20 MG/50 ML IVPB 20 MG/50 ML MG IVPB ONE ×2 (17:24→17:45)
[2019-05-27] MEDS ORDERED: MAG HYDROX/AL HYDROX/SIMETH 30 ML UNIT-DOSE CUP PO ONE (17:25)
[2019-05-27] MEDS ORDERED: ACETAMINOPHEN INJECTION 100 ML IVPB ONE (17:44)
[2019-05-27] MEDS ORDERED: METOCLOPRAMIDE HCL INJECTION 10 MG/2 ML VIAL ONE (17:44)
[2019-05-27] MEDS ORDERED: MAG HYDROX/AL HYDROX/SIMETH 30 ML UNIT-DOSE CUP ONE (17:45)
--- NOTE | 2019-05-27 17:57 | PDOC ---
History of Present Illness - General Chief Complaint: Chest Pain Stated Complaint: CHEST PAIN Time Seen by Provider: 05/27/19 17:05 Past History - Past Medical History Allergies/Adverse Reactions: Allergies Allergy/AdvReac Type Severity Reaction Status Date / Time adhesive AdvReac Verified 05/27/19 16:56 Home Medications: Ambulatory Orders Losartan Potassium 50 mg PO DAILY 08/03/17 Atorvastatin Ca [Lipitor] 20 mg PO HS 08/21/17 Aspirin [[place] Aspirin] 81 mg PO DAILY 05/27/19 Anemia: No Asthma: No Cancer: No Cardiac Disorders: No CVA: No COPD: No CHF: No Dementia: No Diabetes: No GI Disorders: No Disorders: No HTN: Yes Hypercholesterolemia: Yes Liver Disease: No Seizures: No Thyroid Disease: No - Surgical History Abdominal Surgery: Yes (Tummy tuck, lipo) Appendectomy: No Cardiac Surgery: No Cholecystectomy: No Lung Surgery: No Neurologic Surgery: No - Immunization History Immunization Up to Date: Yes - Psycho Social/Smoking Cessation Hx Smoking History: Never smoked Have you smoked in the past 12 months: Yes Hx Alcohol Use: No Drug/Substance Use Hx: No Substance Use Type: Alcohol Hx Substance Use Treatment: No *Physical Exam - Vital Signs Last Vital Signs Temp Pulse Resp BP Pulse Ox 98 F 90 18 156/92 100 05/27/19 16:54 05/27/19 16:54 05/27/19 16:54 05/27/19 16:54 05/27/19 16:54 ED Treatment Course - LABORATORY CBC & Chemistry Diagram: 05/27/19 18:10 05/27/19 18:10 Medical Decision Making - Medical Decision Making 05/27/19 17:26 HPI: 44yo F hx HTN, obesity, HLD, tubal ligation, and FHx early CAD presents from home c/o headache and chest pain x1 day. Pt drank 1 bottle of wine last night, very rare for her, usually drinks 1-2 drinks once a month. Pt was otherwise in [place], denies trauma or fall or recent illness. This AM woke up at 1000 with bitemporal squeezing type constant headache unimproved with baby aspirin, not associated with vision changes, photophobia, fever, neck stiffness, numbness/ tingling, weakness. Baby aspirin but no other pain meds taken. At 1500 today pt had gradual onset generalized weakness, nausea without emesis, and a "little" chest pressure described as substernal and epigastric, nonradiating, burning type, constant, associated with palpitations and intermittent tingling in L hand (resolved). Denies smoking, states quit 1yr ago. Endorses Fhx early CAD. Denies hx DVT/PE, hormone use, hemoptysis, back pain, fever, chills, dizziness, focal weakness, vision changes, shortness of breath, cough, leg swelling, blood in stool, diarrhea, constipation, vomiting, dysuria, hematuria, confusion. Pt has [employer] [facility] planning (unknown name) and saw him 1mo ago; states normal stress test and echo done within past year. PCP - Jared. Presented with similar CP and palpitations on 03/11/19 and discharged s/p negative trops and CTPE. ROS: Constitutional: Positive for generalized weakness, fatigue. Negative for chills , fever, diaphoresis. HENT: Negative for sore throat, rhinorrhea, congestion. Eyes: Negative for visual disturbance. Respiratory: Negative for shortness of breath, cough, and wheezing. Cardiovascular: Positive for chest pain, palpitations. Negative for leg swelling. Gastrointestinal: Positive for epigastric pain, nausea. Negative for blood in stool, constipation, diarrhea, and vomiting. Genitourinary: Negative for dysuria, flank pain, and hematuria. Musculoskeletal: Negative for myalgias, back pain, and neck pain. Skin: Negative for rash. Neurological: Positive for headache and tingling in L hand. Negative for light- headedness, dizziness, vertigo, syncope, weakness. Psychiatric/Behavioral: Negative for behavioral problems and confusion. PE: Gen: Alert, NAD, comfortable-appearing. HEENT: PERRL, EOMI, MMM, NCAT. No conjunctival pallor. Sclera are non-icteric. Oropharynx is clear. CV: Tachycardic rate and regular rhythm. No murmurs, rubs, or gallops. PULM: No resp distress. CTAB, no wheezes, rales, or rhonchi. ABD: soft, NT/ND, no rebound tenderness or guarding, no CVA tenderness. BACK: No TTP of c/t/l-spine. No step-offs or deformities. MSK: No bony deformities. 2+ pulses in all extremities. NEURO: AAOx3. PERRL. CN 2-12 intact. 5/5 strength in all extremities. Sensation to light touch intact in all extremities. No pronator drift. No dysmetria. No dysdiadochokinesia. No abnormal nystagmus. Normal gait. EXTREMITIES: No cyanosis. No clubbing. No edema. No calf tenderness. PSYCH: Normal mood and thought pattern. SKIN: Warm and dry. Normal capillary refill. No rashes. No jaundice. MDM: 44yo F hx HTN, obesity, HLD, tubal ligation, and FHx early CAD presents from home with bitemporal squeezing headache since 1000 today, and nausea, epigastric /substernal burning pain, palpitations, and weakness since 1500, in setting of excessive alcohol use last PM. Slightly tachycardic to 90, otherwise VSS, afebrile, neurologically intact, benign abdomen exam, lungs CTAB. Headache: most consistent with tension headache 2/2 dehydration - hydrate. No trauma or red flags concerning for meningitis, SAH, or ICH. No eye exam abnormalities or vision changes concerning for acute glaucoma. No temporal artery tenderness or jaw pain concerning for GCA. Chest/epigastric pain: most consistent with GERD - GI cocktail. Low concern for ACS/MN or arrhythmia due to lack of arrhythmia or signs of ischemia on EKG, trop neg, lack of association with numbness/diaphoresis/SOB, HEART score 2 ( obestiy, FHx, HTN, HLD) - r/o ACS/MN with troponin x2 and EKG; f/u with [employer] planning. Low concern for pulmonary etiology due to non pleuritic nature of CP, lack of cough or SOB, and lungs CTAB, but r/o PNA, COPD exacerbation, and PTX with CXR and labs. Very low concern for PE due to lack of SOB, nonpleuritic nature of CP, and lack of s/s of DVT, Wells 1.5 for tachycardia, Perc negative - no further testing indicated at this time. Lack of tearing nature of chest pain, lack of back pain, lack of hemodynamic instability, and pulses equal bilaterally, dissection of very low concern - no further testing indicated. Benign abdomen exam and lack of fever/vomiting/diarrhea/constipation/blood in stool not concerning for GI pathology such as pancreatitis or cholelithiasis/ cholecystitis at this time. For both headache and chest pain, consider metabolic derangement, anemia, or . Due to palpitations, also consider thyroid pathology and r/o with TSH. -CBC,CMP,Cardiac profile x2,Mg,Phos,TSH -EKG -CXR -IVF, Tylenol, Pepcid, Maalox, Reglan -Dispo: likely d/c home w/cardiology f/u pending w/u and pain management EKG reviewed: sinus tachycardia, 104bpm, normal intervals, normal axis, no TWIs , no ST elevations or depressions. Compared to 03/11/19, no significant changes. Labs reviewed. No concerning findings. Pending CXR, 2nd trop at 2109, and reassessment of pain and VS. Signed out to Dr Draper.
--- NOTE | 2019-05-27 18:01 | PDOC ---
Documentation entered by Karuna Coleman SCRIBE, acting as scribe for Suasn Clark MD. Susan Clark MD: This documentation has been prepared by the marineeJared Maria, SCRIBE, under my direction and personally reviewed by me in its entirety. I confirm that the documentation accurately reflects all work, treatment, procedures, and medical decision making performed by me. Attending Attestation - Resident Resident Name: Shadia Gudino - ED Attending Attestation I have performed the following: I have examined & evaluated the patient, The case was reviewed & discussed with the resident, I agree w/resident's findings & plan, Exceptions are as noted - HPI HPI: 05/27/19 17: 44-year-old female presents With complaint of epigastric pain that radiates to her back and dyspepsia. She did admit to drinking a bottle of wine yesterday. 05/27/19 18:09 The patient is a 44 year old female with a significant PMH of HTN who presents to the ED with a temporal headache and epigastric pain since this morning. Patient describes the epigastric pain as burning. As per patient she had a bottle wine yesterday. She denies any recent fevers and chills. He denies any recent nausea, vomiting , diarrhea or constipation. She denies any recent shortness of breath. She denies any recent dysuria, frequency, urgency or hematuria. Surgical History: Partial Hysterectomy - Physicial Exam PE: 05/27/19 22:46 wnwd 44 yo female In no acute distress Head normocephalic atraumatic Neck is supple Lungs are clear to auscultation bilaterally CVS regular rate and rhythm S1-S2 Abdomen soft, nontender Skin warm and dry Extremities no deformities Neuro alert and oriented x3, ambulatory no gross focal neuro deficits 05/28/19 02:26 - Medical Decision Making 05/27/19 17:48 EKG is 118 bpm tachycardia 05/28/19 02:27 Labs essentially unremarkable Patient symptoms resolved with medications she was discharged home
[2019-05-27 18:20] LABS: BASO % 0.6 % (0-2.0); EOS % 0.7 % (0-4.5); HEMOGLOBIN 13.9 GM/dL (10.7-15.3); LYMPH % 24.6 % (8-40); MCH 28.3 pg (25.7-33.7); MCHC 33.1 g/dl (32.0-36.0); MEAN CELL VOLUME 85.5 fl (80-96); MEAN PLT VOLUME 7.8 fl (7.5-11.1); MONO % 4.3 % (3.8-10.2); NEUT % 69.8 % (42.8-82.8); PLATELET COUNT 333 K/MM3 (134-434); RBC 4.91 M/mm3 (3.60-5.2); RDW 13.2 % (11.6-15.6); WHITE BLOOD COUNT 9.1 K/mm3 (4.0-10.0)
[2019-05-27 18:28] LABS: INR 0.95 (0.83-1.09); PROTHROMBIN TIME (PATIENT) 11.2 SEC (9.7-13.0)
[2019-05-27 18:31] LABS: ACTIVATED PTT 28.5 SECONDS (25.2-36.5)
[2019-05-27 18:54] LABS: ALK PHOS 59 U/L (45-117); ANION GAP 3 MMOL/L (8-16); BILIRUBIN,TOTAL 0.3 mg/dL (0.2-1); BLOOD UREA NITROGEN 12.3 mg/dL (7-18); CALCIUM 8.8 mg/dL (8.5-10.1); CHLORIDE 108 mmol/L (98-107); CO2 27 mmol/L (21-32); CREATININE 0.6 mg/dL (0.55-1.3); GLUCOSE,RANDOM 107 mg/dL (74-106); PHOSPHOROUS 3.5 mg/dL (2.5-4.9); POTASSIUM 4.1 mmol/L (3.5-5.1); SGOT/AST 16 U/L (15-37); SGPT/ALT 34 U/L (13-61); SODIUM 138 mmol/L (136-145); TOT PROT 7.4 g/dl (6.4-8.2)
--- NOTE | 2019-05-27 21:32 | PDOC ---
*Physical Exam - Vital Signs Last Vital Signs Temp Pulse Resp BP Pulse Ox 98 F 90 18 156/92 100 05/27/19 16:54 05/27/19 16:54 05/27/19 16:54 05/27/19 16:54 05/27/19 16:54 ED Treatment Course - LABORATORY CBC & Chemistry Diagram: 05/27/19 18:10 05/27/19 18:10 - ADDITIONAL ORDERS Additional order review: Laboratory Results 05/27/19 05/27/19 18:10 18:10 PT with INR 11.20 INR 0.95 PTT (Actin FS) 28.5 Sodium 138 Potassium 4.1 Chloride 108 H Carbon Dioxide 27 Anion Gap 3 L BUN 12.3 Creatinine 0.6 Est GFR (CKD-EPI)AfAm 129.39 Est GFR (CKD-EPI)NonAf 111.64 Random Glucose 107 H Calcium 8.8 Phosphorus 3.5 Magnesium 2.0 Total Bilirubin 0.3 AST 16 ALT 34 Alkaline Phosphatase 59 Creatine Kinase 90 Troponin I < 0.02 Total Protein 7.4 Albumin 4.0 TSH 0.63 05/27/19 18:10 RBC 4.91 MCV 85.5 MCHC 33.1 RDW 13.2 MPV 7.8 Neutrophils % 69.8 Lymphocytes % 24.6 Monocytes % 4.3 Eosinophils % 0.7 Basophils % 0.6 - Medications Given in the ED: ED Medications Discontinued Medications Generic Name Dose Route Start Last Admin Trade Name Tad PRN Reason Stop Dose Admin Acetaminophen 1,000 mg 05/27/19 17:24 05/27/19 18:00 Ofirmev Injection - IVPB 05/27/19 17:25 1,000 mg ONCE ONE Administration Al Hydroxide/Mg Hydroxide 30 ml 05/27/19 17:25 05/27/19 18:00 Mylanta Oral Suspension - PO 05/27/19 17:26 30 ml ONCE ONE Administration Famotidine/Sodium Chloride 20 mg in 50 mls @ 100 mls/hr 05/27/19 17:24 18:00 Pepcid 20 Mg Premixed Ivpb - IVPB 05/27/19 17:53 100 mls/hr ONCE ONE Administration Metoclopramide HCl 10 mg 05/27/19 17:24 05/27/19 18:00 Reglan Injection - IVPB 05/27/19 17:25 10 mg ONCE ONE Administration Sodium Chloride 1,000 ml 05/27/19 17:24 05/27/19 18:00 Normal Saline - IV 05/27/19 17:25 1,000 ml ONCE ONE Administration Medical Decision Making - Medical Decision Making 05/27/19 19:59 Received on signout from Dr Gudino 44yo F hx HTN, obesity, HLD, tubal ligation, and FHx early CAD presents from home with bitemporal squeezing headache since 1000 today, and nausea, epigastric /substernal burning pain, palpitations, and weakness since 1500, in setting of excessive alcohol use last PM. Slightly tachycardic to 90, otherwise VSS, afebrile, neurologically intact, benign abdomen exam, lungs CTAB. Chest/epigastric pain: most consistent with GERD - GI cocktail. Low concern for ACS/ID or arrhythmia due to lack of arrhythmia or signs of ischemia on EKG, trop neg, lack of association with numbness/diaphoresis/SOB, HEART score 2 ( obestiy, FHx, HTN, HLD) - r/o ACS/ID with troponin x2 and EKG -will followup 2nd trop and CXR and dispo appropriately 05/27/19 22:16 2nd trop negative cxr unremarkable symptoms improved discussed results with patient as well as return pcxns; patient understands and will bd DCd home with followup Discharge - Discharge Information Problems reviewed: Yes Clinical Impression/Diagnosis: Atypical chest pain Abdominal pain Qualifiers: Abdominal location: epigastric Qualified Code(s): R10.13 - Epigastric pain Condition: Stable Disposition: HOME - Follow up/Referral - Patient Discharge Instructions Patient Printed Discharge Instructions: DI for Atypical Chest Pain Additional Instructions: Return to the ED if new or worsening symptoms such as worsening pain, shortness of breath, fainting occur Please followup with your PCP and global logistics manager within 48-72 hours - Post Discharge Activity
[2019-05-27 22:59] VITALS: BP 132/79; PULSE 86; TEMP 98.1
--- NOTE | 2019-05-28 16:00 | EKG ---
Test Reason : Blood Pressure : / mmHG Vent. Rate : 104 BPM Atrial Rate : 104 BPM P-R Int : 144 ms QRS Dur : 088 ms QT Int : 354 ms P-R-T Axes : 061 062 049 degrees QTc Int : 465 ms SINUS TACHYCARDIA POSSIBLE LEFT ATRIAL ENLARGEMENT BORDERLINE ECG WHEN COMPARED WITH ECG OF 11-MAR-2019 22:27, NO SIGNIFICANT CHANGE WAS FOUND Confirmed by JOYCE ALVAREZ MD ([id number]) on 05/28/2019 3:59:41 PM Referred By: Confirmed By:JOYCE ALVAREZ MD
== END 2019-05-27 22:35 | disposition home or self-care (01) ==
LOC: JER 16:36
PROC: 3E033GC Introduction of Other Therapeutic Substance into Peripheral Vein, Percutaneous Approach (ICD-10-PCS; principal; 2019-05-27)
PROC: 3E033GC Introduction of Other Therapeutic Substance into Peripheral Vein, Percutaneous Approach (ICD-10-PCS; 2019-05-27)
PROC: 3E033NZ Introduction of Analgesics, Hypnotics, Sedatives into Peripheral Vein, Percutaneous Approach (ICD-10-PCS; 2019-05-27)
DX: R07.9 Chest pain, unspecified (principal); R51 Headache; I10 Essential (primary) hypertension; E78.5 Hyperlipidemia, unspecified; E66.9 Obesity, unspecified; Z68.29 Body mass index [BMI] 29.0-29.9, adult; Z98.51 Tubal ligation status; Z91.048 Other nonmedicinal substance allergy status
CPT/HCPCS: 36415; 71046-TC-FY; 80053; 82550; 83735; 84100; 84443; 84484; 84702; 85025; 85610; 85730; 93005; 93010; 99284-25; J0131

== ENCOUNTER 2019-08-16 11:19 | Emergency (ER) | payer OTHER ==
[2019-08-16 11:58] VITALS: BP 140/86; PULSE 87; TEMP 98.1; BMI 28.8
--- NOTE | 2019-08-16 12:23 | PDOC ---
History of Present Illness - General Chief Complaint: Palpitations Stated Complaint: CHEST PAIN Time Seen by Provider: 08/16/19 12:22 History Source: Patient Exam Limitations: No Limitations - History of Present Illness Initial Comments: 08/16/19 12:23 44yo F hx HTN, obesity, HLD, GERD presenting w sudden onset mild midsternal chest pain and palpitations lasting 5min at 11a while watching TV. Chest pain worse w swallowing and meals, not associated w exertion, diagnosed in past w gastritis and gerd. Takes reflux medication intermittently, not today. Denies fever, cough, SOB, nausea/vomiting. Past History - Past Medical History Allergies/Adverse Reactions: Allergies Allergy/AdvReac Type Severity Reaction Status Date / Time adhesive AdvReac Verified 08/16/19 11:55 Home Medications: Ambulatory Orders Losartan Potassium 50 mg PO DAILY 08/03/17 Atorvastatin Ca [Lipitor] 20 mg PO HS 08/21/17 Aspirin [[place] Aspirin] 81 mg PO DAILY 05/27/19 Anemia: No Asthma: No Cancer: No Cardiac Disorders: No CVA: No COPD: No CHF: No Dementia: No Diabetes: No GI Disorders: No Disorders: No HTN: Yes Hypercholesterolemia: Yes Liver Disease: No Seizures: No Thyroid Disease: No - Surgical History Abdominal Surgery: Yes (Tummy tuck, lipo) Appendectomy: No Cardiac Surgery: No Cholecystectomy: No Lung Surgery: No Neurologic Surgery: No - Immunization History Immunization Up to Date: Yes - Psycho Social/Smoking Cessation Hx Smoking History: Never smoked Have you smoked in the past 12 months: Yes Hx Alcohol Use: No Drug/Substance Use Hx: No Substance Use Type: Alcohol Hx Substance Use Treatment: No Review of Systems - Review of Systems Constitutional: No: Chills, Fever HEENTM: No: Eye Pain, Nose Congestion Respiratory: No: Cough, Shortness of Breath Cardiac (ROS): Yes: Chest Pain, Palpitations. No: Syncope ABD/GI: No: Constipated, Diarrhea, Nausea, Vomiting : No: Burning, Dysuria Musculoskeletal: No: Back Pain, Joint Pain Integumentary: No: Bruising, Flushing Neurological: No: Headache, Numbness Psychiatric: No: Anxiety, Depression Endocrine: No: Intolerance to Cold, Intolerance to Heat Hematologic/Lymphatic: No: Anemia, Blood Clots *Physical Exam - Vital Signs Last Vital Signs Temp Pulse Resp BP Pulse Ox 98.1 F 87 18 140/86 99 08/16/19 11:52 08/16/19 11:52 08/16/19 11:52 08/16/19 11:52 08/16/19 11:52 - Physical Exam General Appearance: Yes: Nourished, Appropriately Dressed, Mild Distress HEENT: positive: EOMI, RENY, Normal Voice. negative: Scleral Icterus (R), Scleral Icterus (L), Rhinorrhea Respiratory/Chest: positive: Lungs Clear, Normal Breath Sounds. negative: Chest Tender, Respiratory Distress, Crackles, Rales, Rhonchi, Stridor, Wheezing Cardiovascular: positive: Regular Rhythm, Regular Rate, S1, S2. negative: Edema , Murmur Gastrointestinal/Abdominal: positive: Normal Bowel Sounds, Tender (mild epigastric), Flat, Soft. negative: Organomegaly Extremity: positive: Normal Capillary Refill Integumentary: positive: Normal Color. negative: Dry, Warm Neurologic: positive: calculus teacher II-XII NML intact, Fully Oriented, Alert, Normal Response, Responsive. negative: Sensory Deficit, Confused, Disoriented Heart Score/ECG Review - History History: Slightly suspicious - Electrocardiogram EKG: Normal - Age Age: </= 45 - Risk Factors Risk Factors Heart Score: Yes Hx Hypercholesterolemia, Yes Hx Hypertension, No Hx Diabetes, No Smoking History, Yes Positive family hx of cardiac disease, No Hx Obesity Based on the list above the patient has:: >/=3 risk factors or Hx atherosclerotic disease - Troponin Troponin: </= normal limit - Score Heart Score - Total: 2 ED Treatment Course - LABORATORY CBC & Chemistry Diagram: 08/16/19 13:00 08/16/19 13:00 Medical Decision Making - Medical Decision Making 08/16/19 12:30 EKG NSR HR 90, QTc 462, no ST changes CXR - clear lungs --- 44yo F hx HTN, obesity, HLD, GERD presenting w sudden onset mild midsternal chest pain and palpitations this morning d/t GERD (mild epigastric pain worse w eating). Low concern for PNA (clear lungs) vs ACS (neg trop, no ST changes) vs preg (neg) Given pepcid, maalox. DC home w pepcid and PCP f/u Discharge - Discharge Information Problems reviewed: Yes Clinical Impression/Diagnosis: GERD (gastroesophageal reflux disease) Qualifiers: Esophagitis presence: without esophagitis Qualified Code(s): K21.9 - Gastro- esophageal reflux disease without esophagitis Condition: Improved Disposition: HOME - Follow up/Referral Referrals: Markell Coleman MD [Primary Care Provider] - - Patient Discharge Instructions Patient Printed Discharge Instructions: DI for Gastroesophageal Reflux Disease (GERD) Additional Instructions: Take the prescribed pepcid as directed Follow up with your primary care doctor - Post Discharge Activity
[2019-08-16] MEDS ORDERED: MAG HYDROX/AL HYDROX/SIMETH 30 ML UNIT-DOSE CUP PO ONE (12:53)
[2019-08-16] MEDS ORDERED: FAMOTIDINE 20 MG TABLET PO ONE (12:53)
[2019-08-16] MEDS ORDERED: FAMOTIDINE 20 MG TABLET ONE (13:18)
[2019-08-16] MEDS ORDERED: MAG HYDROX/AL HYDROX/SIMETH 30 ML UNIT-DOSE CUP ONE (13:18)
[2019-08-16 13:22] LABS: BASO % 0.5 % (0-2.0); EOS % 1.8 % (0-4.5); HEMATOCRIT 41.4 % (32.4-45.2); HEMOGLOBIN 13.9 GM/dL (10.7-15.3); LYMPH % 37.2 % (8-40); MCH 28.6 pg (25.7-33.7); MCHC 33.6 g/dl (32.0-36.0); MEAN CELL VOLUME 85.3 fl (80-96); MEAN PLT VOLUME 7.7 fl (7.5-11.1); MONO % 6.7 % (3.8-10.2); NEUT % 53.8 % (42.8-82.8); PLATELET COUNT 356 K/MM3 (134-434); RBC 4.86 M/mm3 (3.60-5.2); RDW 13.7 % (11.6-15.6); WHITE BLOOD COUNT 5.5 K/mm3 (4.0-10.0)
[2019-08-16 13:50] LABS: ALBUMIN 3.9 g/dl (3.4-5.0); ALK PHOS 55 U/L (45-117); ANION GAP 7 MMOL/L (8-16); BILIRUBIN,TOTAL 0.5 mg/dL (0.2-1); BLOOD UREA NITROGEN 10.5 mg/dL (7-18); CALCIUM 9.4 mg/dL (8.5-10.1); CHLORIDE 109 mmol/L (98-107); CO2 26 mmol/L (21-32); CREATININE 0.7 mg/dL (0.55-1.3); GLUCOSE,RANDOM 98 mg/dL (74-106); POTASSIUM 4.2 mmol/L (3.5-5.1); SGOT/AST 20 U/L (15-37); SGPT/ALT 42 U/L (13-61); SODIUM 142 mmol/L (136-145); TOT PROT 7.4 g/dl (6.4-8.2)
--- NOTE | 2019-08-16 14:08 | PDOC ---
Attending Attestation - Resident Resident Name: DeanneKashmir - ED Attending Attestation I have performed the following: I have examined & evaluated the patient, The case was reviewed & discussed with the resident, I agree w/resident's findings & plan, Exceptions are as noted - HPI HPI: 08/16/19 14:06 44yoF presents c/o epig pain and nausea, pain is worse when she takes her daily medications on an empty stomach. no sob, no diaphoresis. - Physicial Exam PE: 08/16/19 14:08 nad , well appearing soft , mild epig ttp A&O x 3 - Medical Decision Making 08/16/19 14:08 44yoF w/ epig pain, likely gastritis - labs - ekg - gi meds - reeval and dispo.
--- NOTE | 2019-08-18 17:23 | EKG ---
Test Reason : Blood Pressure : / mmHG Vent. Rate : 090 BPM Atrial Rate : 090 BPM P-R Int : 140 ms QRS Dur : 086 ms QT Int : 378 ms P-R-T Axes : 066 066 059 degrees QTc Int : 462 ms NORMAL SINUS RHYTHM POSSIBLE LEFT ATRIAL ENLARGEMENT BORDERLINE ECG WHEN COMPARED WITH ECG OF 27-MAY-2019 16:42, NO SIGNIFICANT CHANGE WAS FOUND Confirmed by RANDY PAULA, PETER ([id number]) on 08/18/2019 5:22:58 PM Referred By: Confirmed By:PETER PAIDLLA MD
== END 2019-08-16 14:09 | disposition home or self-care (01) ==
LOC: JER 11:19
DX: K21.9 Gastro-esophageal reflux disease without esophagitis (principal); I10 Essential (primary) hypertension; E78.5 Hyperlipidemia, unspecified; E66.9 Obesity, unspecified; Z68.28 Body mass index [BMI] 28.0-28.9, adult; Z91.048 Other nonmedicinal substance allergy status
CPT/HCPCS: 36415; 71046-TC-FY; 80053; 82550; 84484; 84703; 85025; 93005; 93010; 99285-25

== ENCOUNTER 2021-04-05 21:33 | Emergency (ER) | payer OTHER ==
[2021-04-05 22:44] VITALS: BP 145/96; PULSE 77; TEMP 98; BMI 28.3
[2021-04-05] MEDS ORDERED: TETRACAINE 0.5% HCL 0.6ML DROPPER.BOTTLE OD ONE (22:49)
[2021-04-05] MEDS ORDERED: TETRACAINE 0.5% OPHTH SOLN 2 ML BOTTLE ONE (22:57)
[2021-04-05] MEDS ORDERED: FLUORESCEIN NA 1 EA STRIP OU ONE (23:10)
[2021-04-05] MEDS ORDERED: FLUORESCEIN NA 1 EA STRIP ONE (23:14)
[2021-04-05] MEDS ORDERED: ACETAMINOPHEN 325 MG TABLET (FP) PO ONE (23:43)
[2021-04-05] MEDS ORDERED: ACETAMINOPHEN 325 MG TABLET (FP) ONE (23:46)
== END 2021-04-06 00:32 | disposition home or self-care (01) ==
LOC: JER 21:33
DX: H16.003 Unspecified corneal ulcer, bilateral (principal)
CPT/HCPCS: 99283-25

== ENCOUNTER 2022-06-20 14:32 | Emergency (ER) | payer OTHER ==
[2022-06-20 14:48] VITALS: PULSE 82; RESP 18; TEMP 97.9; BMI 30.7
[2022-06-20] MEDS ORDERED: FAMOTIDINE 20 MG TABLET PO ONE (15:30)
[2022-06-20] MEDS ORDERED: FAMOTIDINE 20 MG TABLET ONE (15:34)
[2022-06-20 16:04] VITALS: BP 129/92
== END 2022-06-20 16:13 | disposition home or self-care (01) ==
LOC: JER 14:32 → JERFT 14:32
DX: K21.00 Gastro-esophageal reflux disease with esophagitis, without bleeding (principal)
CPT/HCPCS: 99283-25

== ENCOUNTER 2022-07-28 07:00 | Emergency (ER) | payer OTHER ==
[2022-07-28 07:16] VITALS: BMI 31.1
[2022-07-28] MEDS ORDERED: SODIUM CHLORIDE 1,000 ML IV STA (08:15)
[2022-07-28] MEDS ORDERED: METOCLOPRAMIDE HCL INJECTION 10 MG/2 ML VIAL IVPUSH ONE (08:15)
[2022-07-28] MEDS ORDERED: METOCLOPRAMIDE HCL INJECTION 10 MG/2 ML VIAL ONE (08:39)
[2022-07-28 09:13] LABS: BASO % 0.2 % (0-2.0); EOS % 0.6 % (0-4.5); HEMATOCRIT 40.6 % (32.4-45.2); HEMOGLOBIN 13.4 GM/dL (10.7-15.3); LYMPH % 16.1 % (8-40); MCH 28.2 pg (25.7-33.7); MCHC 33.1 g/dl (32.0-36.0); MEAN CELL VOLUME 85.2 fl (80-96); MONO % 4.3 % (3.8-10.2); NEUT % 78.8 % (42.8-82.8); PLATELET COUNT 333 10^3/uL (134-434); RBC 4.76 M/mm3 (3.60-5.2); RDW 13.6 % (11.6-15.6); WHITE BLOOD COUNT 9.8 K/mm3 (4.0-10.0)
[2022-07-28 09:45] LABS: CALCIUM 8.7 mg/dL (8.5-10.1)
[2022-07-28 09:46] LABS: ALBUMIN 3.5 g/dl (3.4-5.0); BLOOD UREA NITROGEN 15.1 mg/dL (7-18)
[2022-07-28 09:49] LABS: CREATININE 0.7 mg/dL (0.55-1.3)
[2022-07-28 09:51] LABS: BILIRUBIN,TOTAL 0.2 mg/dL (0.2-1); TOT PROT 6.8 g/dl (6.4-8.2)
[2022-07-28 12:35] VITALS: BP 118/79; PULSE 71; RESP 18; TEMP 97.8
== END 2022-07-28 12:36 | disposition home or self-care (01) ==
LOC: JER 07:00
PROC: 3E033GC Introduction of Other Therapeutic Substance into Peripheral Vein, Percutaneous Approach (ICD-10-PCS; principal; 2022-07-28)
DX: R42 Dizziness and giddiness (principal)
CPT/HCPCS: 36415; 80053; 84703; 85025; 99284-25

== ENCOUNTER 2024-05-10 05:23 | Day surgery (SDC) | payer OTHER ==
[2024-05-09 12:22] VITALS: BMI 31.8
[2024-05-10 10:06] VITALS: TEMP 97.2
[2024-05-10 10:10] VITALS: PULSE 66
[2024-05-10 10:33] VITALS: BP 121/79; RESP 14
== END 2024-05-10 10:32 | disposition home or self-care (01) ==
LOC: JASU-ENDO 05:23
PROVIDERS: ATTEND Internal Medicine Gastroenterology
PROC: 0DJD8ZZ Inspection of Lower Intestinal Tract, Via Natural or Artificial Opening Endoscopic (ICD-10-PCS; principal; 2024-05-10 09:00)
DX: Z12.11 Encounter for screening for malignant neoplasm of colon (principal)
CPT/HCPCS: 81025